=== PATIENT | female | born 2005 | race Caucasian/White ===

== ENCOUNTER 2023-08-08 13:04 | Outpatient (OUT) | payer MEDICAID, SELFPAY ==
--- NOTE | 2023-08-08 13:22 | US_ITS ---
Patient: NANCIE FUENTES Exam Date: 08/08/2023 : 2005 Gender:F Ordering : ALON Maharaj . Admission #: [id number] Family : Order #: [id number] CLICK HERE TO VIEW EXAM RADIOLOGY REPORT PROCEDURE: MAMMOGRAM DIAGNOSTIC 3D BILATERAL CAD, 08/08/2023, 14:10 US BREAST LT COMPLETE, 08/08/2023, 13:24 COMPARISON: None. INDICATIONS: Palpable lump left breast 12 o'clock Calculator Name NCI Breast Cancer Risk Assessment Tool 5 Year Breast Cancer Risk Not Applicable. Lifetime Breast Cancer Risk Not Applicable. Personal Breast Cancer No Personal Ovarian Cancer No Treatments None Family Cancers Grandmother-maternal with breast cancer at age 50. LOCATION: [facility] BREAST COMPOSITION: Extremely dense, which lowers the sensitivity of mammography. FINDINGS: DIAGNOSTIC CATEGORY 1--NEGATIVE. RIGHT BREAST: No significant suspicious finding. Skin surface marker localizing the palpable lump to the anterior 12 o'clock breast appears to overlie dense fibroglandular tissue. No mammographic abnormality. Ultrasound evaluation in area of palpable lump demonstrates normal appearing dense fibroglandular tissue. LEFT BREAST: No significant suspicious finding. RECOMMENDATIONS: CLINICAL EVALUATION. PLEASE NOTE: A NORMAL MAMMOGRAM DOES NOT EXCLUDE THE POSSIBILITY OF BREAST CANCER. A CLINICALLY SUSPICIOUS PALPABLE LUMP SHOULD BE BIOPSIED. Dictated by: Adeel Perry M.D. on 08/08/2023 at 14:52 Approved by: Adeel Perry M.D. on 08/08/2023 at 14:55
== END 2023-08-08 13:05 | disposition home or self-care (01) ==
LOC: US 13:04
PROVIDERS: PCP Obstetrics & Gynecology; Visit Provider Physician Assistant
DX: Z12.31 Encounter for screening mammogram for malignant neoplasm of breast (principal); N63.20 Unspecified lump in the left breast, unspecified quadrant; Z80.3 Family history of malignant neoplasm of breast
CPT/HCPCS: 76641; 77066; G0279

== ENCOUNTER 2025-08-23 19:50 | Outpatient (REF) | payer MEDICAID, SELFPAY ==
--- OUTSIDE RECORDS SUMMARY | 2024-06-24 04:40 | XMS_ITS ---
Author Organization [facility] [place] Address [address] [place] [address] Care Team Providers Care Garment Sewing Machine Operator Name Role Phone Yakov Craft MD Primary Care Provider Unavailab Nila Malloy Unavailable [phone] REASON FOR VISIT 2 week f/u Encounters Encounter Location Date Provider Diagnosis [facility] (POD[facility]) [address] [place] [address] [place] [address] 06/24/2024 Nila Wasserman Plan Of Treatment No Information Progress Notes * Heather JOLLEYDOB:2005 (20 yo F)Acc No.[id number]:06/24/2024 UNLOCKED PROGRESS NOTE Follow Up Patient: Heather GAMA :?QUYEN ChamorroCDOB:2005???Age:19 Y ???Sex:FemaleDate:4Phone:[phone]:[address] [id number]:Yakov Craft MD Subjective: * Chief Complaints: * 1 . 2 week f/u. * Medical History: Objective: * Vitals: Assessment: Plan: * Treatment: * * Electronic signature of Nila Wasserman PA-C on 08/23/2025 at 02:47 PM ESTSign off status: PendingVisit Status:?N/S N/C (No Show/No Charge) * Provider: Noemy Wasserman PA-C Date: 0 06/24/2024 Generated for Printing/Faxing/eTransmitting on:?08/23/2025 02:47 PM EST
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
--- OUTSIDE RECORDS SUMMARY | 2024-10-08 04:30 | XMS_ITS ---
Author Organization [facility] Address [address] [place] [address] Care Team Providers Care Geropsychologist Name Role Phone Radha Hernández Primary Care Provider Marylou Preston Unavailable NASH AL Unavailable [phone] REASON FOR VISIT FILLING Encounters Encounter Location Date Provider Diagnosis [facility] [place] [address] [facility] [place] [address] 10/08/2024 Marylou Ellis Plan Of Treatment No Information Progress Notes * NANCIE FUENTESDOB:2005 (20 yo F)Acc No.[id number]:10/08/2024 Patient:?NANCIE FUENTES :?MARYLOU CORINE ELLIS DDSDOB:2005???Age: 19 Y???Sex:FemaleDate:4Phone:[phone]:[address] [place], [place]Gqh:Radha Hernández Subjective: * Chief Complaints: * F ILLING Billing Information: * Procedure Codes: * Electronic signature of Marylou Ellis DDS on 08/23/2025 at 02:47 PM ESTSign off status: Pending * Provider: Jessica ELLIS DDS Date: 12/09/2023 Generated for Printing/Faxing/eTransmitting on:?08/23/2025 02:47 PM EST
--- OUTSIDE RECORDS SUMMARY | 2024-11-19 05:00 | XMS_ITS ---
Author Organization [facility] Address [address] [place] [address] Care Team Providers Care Emergency Medicine Nurse Practitioner Name Role Phone Radha Hernández Primary Care Provider Yolanda Preston Unavailable [phone] NASH AL Unavailable [phone] Sharon Cunningham Unavailable [phone] REASON FOR VISIT PROPHY Encounters Encounter Location Date Provider Diagnosis [facility] [place] [address] 11/19/2024 Sharon Cunningham Plan Of Treatment No Information Progress Notes * NANCIE FUENTESDOB:2005 (20 yo F)Acc No.[id number]:11/19/2024 Patient:?NANCIE FUENTES :?Sharon LopezDOB:2005???Age:19 Y???Sex: FemaleDate:11/19/2024Phone:[phone]:[address] [place]-[id number]:Radha Hernández Subjective: * Chief Complaints: * P ROPHY * Electronic signature of Sharon Cunningham on 08/23/2025 at 02:47 PM ESTSign off status: Pending * Provider: Abdullahi Lopez Date: 0 11/19/2024 Generated for Printing/Faxing/eTransmitting on:?08/23/2025 02:47 PM EST
--- OUTSIDE RECORDS SUMMARY | 2024-12-14 08:15 | XMS_ITS ---
Author Organization [facility] Address [address] [place] [address] Care Team Providers Care Dental Resident Name Role Phone Radha Hernández Primary Care Provider Yolanda Preston Unavailable NASH AL Unavailable [phone] REASON FOR VISIT 1 month f/u Encounters Encounter Location Date Provider Diagnosis [facility] [address] [facility] [address] 12/14/2024 Radha Hernández Plan Of Treatment No Information Progress Notes * GINANANCIEDOB:2005 (20 yo F)Acc No.[id number]:12/14/2024 Behavioral Health Patient: NANCIE GAMA :?Radha HernándezDOB:2005???Age:19 Y???Sex: FemaleDate:12/14/2024Phone:[phone]:[address] [place], [place]-[address] Subjective: * Chief Complaints: * 1 month f/u Billing Information: * Procedure Codes: * Electronic signature of FILEMON Caldwell on 08/23/2025 at 02:47 PM EST Sign off status: Pending * Provider: Jessica Hernández Date: 0 12/14/2024 Generated for Printing/Faxing/eTransmitting on:?08/23/2025 02:47 PM EST
--- OUTSIDE RECORDS SUMMARY | 2025-06-06 09:30 | XMS_ITS ---
Author Organization [facility] Address [address] [place] [address] Care Team Providers Care Volleyball Assistant Coach Name Role Phone Radha Hernández Primary Care Provider Yolanda Preston Unavailable NASH AL Unavailable [phone] Dr. John Arthur Unavailable [phone] REASON FOR VISIT TACKER ELASTIC BAND EXAM Encounters Encounter Location Date Provider Diagnosis [facility] [address] [place] [address] 06/06/2025 John Arthur Plan Of Treatment No Information Progress Notes * NANCIE FUENTESDOB:2005 (20 yo F)Acc No.[id number]:06/06/2025 Patient:?NANCIE FUENTES :?John Arthur DDSDOB:2005???Age:20 Y???Sex: FemaleDate:06/06/2025Phone:[phone]:[address], [place]-[id number]:Radha Hernández Subjective: * Chief Complaints: * N P EXAM Billing Information: * Procedure Codes: * Electronic signature of Dr. John Arthur , [facility], [id number] on 08/23/2025 at 02:47 PM ESTSign off status: Pending * Provider: Savi Arthur DDS Date: 0 06/06/2025 Generated for Printing/Faxing/eTransmitting on:?08/23/2025 02:47 PM EST
--- OUTSIDE RECORDS SUMMARY | 2025-08-15 09:50 | XMS_ITS | Encounter Summary ---
Author Organization [facility] Address [address] [place] [address] Care Team Providers Care Behavioral Health Care Manager Name Role Phone Yakov Craft MD Primary Care Provider Reason for Visit * ReasonCommentsDiscuss Control Encounter Details DateTypeDepartmentCare Team (Latest Contact Info)Mgliprifbvu06/03/2025 9:50 AM ESTOffice Visit [facility] [address] [place] [address] Pj Kelley DO [address] [facility] [address] Bruce Peace, [facility] Encounter for other general counseling or advice on contraception; Insertion of Nexplanon Social History Tobacco UseTypesPacks/DayYears UsedDateSmoking Tobacco: FormerCigarettesAlcohol UseStandard Drinks/WeekCommentsNever0 (1 standard drink = 0.6 oz pure alcohol) CommentsUnknownSex and Gender InformationValueDate RecordedSex Assigned at BirthNot on fileLegal KpkJqjbst80/22/2024 12:53 PM ESTGender IdentityNot on fileSexual OrientationNot on filedocumented as of this encounter Last Filed Vital Signs Vital SignReadingTime TakenCommentsBlood Clnqbsee697/8608/15/2025 9:52 AM EST Pulse--Temperature--Respiratory Rate--Oxygen Saturation--Inhaled Oxygen Concentration--Sxwbsy16.8 kg (136 lb 4 oz)08/15/2025 9:52 AM ESTHeight--Body Mass Index22.6701 12:00 PM ESTdocumented in this encounter Progress Notes * Lian Chiang LPN - 08/15/2025 9:50 AM ESTAssociated Order(s): Insertion/Removal of Contraceptive Capsule Post-Procedure Diagnose(s): Insertion of Nexplanon; Encounter for other general counseling or advice on contraception Reason for Appointment: Patient ID: Heather Jolley is a 20 y.o. female who presents for Discuss Control Patient presents today for a Nexplanon Insertion appointment. MEDICATIONS No current outpatient medications ALLERGIES Allergies Allergen Reactions Cyclobenzaprine Unknown PROBLEMS Active Ambulatory Problems Diagnosis Date Noted No Active Ambulatory Problems Resolved Ambulatory Problems Diagnosis Date Noted No Resolved Ambulatory Problems Past Medical History: Diagnosis Date BMI 29.0-29.9,adult Choroid plexus cyst Encounter for follow-up TOM (generalized anxiety disorder) Hordeolum externum of right eye, unspecified eyelid Insomnia MDD (major depressive disorder), recurrent episode, moderate (HCC) Vaginal delivery (HHS-HCC) HISTORY PAST MEDICAL HISTORY SOCIAL HISTORY Past Medical History: Diagnosis Date BMI 29.0-29.9,adult Choroid plexus cyst Encounter for follow-up TOM (generalized anxiety disorder) Hordeolum externum of right eye, unspecified eyelid Insomnia MDD (major depressive disorder), recurrent episode, moderate (HCC) Vaginal delivery (HHS-HCC) Social History Tobacco Use Smoking status: Former Types: Cigarettes Smokeless tobacco: Not on file Substance Use Topics Alcohol use: Never Drug use: Never FAMILY HISTORY No family history on file. SURGICAL HISTORY Past Surgical History: Procedure Laterality Date RI TONSILLECTOMY & ADENOIDECTOMY AGE 10/> 2018 T&A REVIEW OF SYSTEMS Review of Systems: Review of Systems Constitutional: Negative. HENT: Negative. Eyes: Negative. Respiratory: Negative. Cardiovascular: Negative. Gastrointestinal: Negative. Genitourinary: Negative. Musculoskeletal: Negative. Skin: Negative. Neurological: Negative. All other systems reviewed and are negative. Hematological: Negative. Endocrine: Negative. Allergic/Immunologic: Negative. OBJECTIVE Objective: Physical Exam Constitutional: Appearance: Normal appearance. She is well-developed. Cardiovascular: Rate and Rhythm: Normal rate and regular rhythm. Pulmonary: Effort: Pulmonary effort is normal. Breath sounds: Normal breath sounds. Abdominal: General: Bowel sounds are normal. There is no distension. Palpations: Abdomen is soft. Tenderness: There is no abdominal tenderness. There is no guarding or rebound. Musculoskeletal: General: No swelling. Normal range of motion. Right lower leg: No edema. Left lower leg: No edema. Neurological: Mental Status: She is alert and oriented to person, place, and time. Skin: General: Skin is warm and dry. Psychiatric: Mood and Affect: Mood normal. Behavior: Behavior normal. Vitals and nursing note reviewed. Exam conducted with a entry level business analyst present. Vitals: Estimated body mass index is 22.67 kg/m?? as calculated from the following: Height as of 10/30/22: 5' 5 . Weight as of this encounter: 136 lb 4 oz. BP: 122/86 No LMP recorded. ASSESSMENT & PLAN Assessment/Plan Encounter Diagnosis: ICD-10-CM 1. Encounter for other general counseling or advice on contraception Z30.09 POCT , urine manually resulted 2. Insertion of Nexplanon Z30.017 etonogestrel-eluting 68 mg contraceptive implant 1 each Insertion/Removal of Contraceptive Capsule Date/Time: 08/15/2025 10:30 AM Performed by: Pj Kelley DO Authorized by: Pj Kelley DO Consent: Consent obtained: Verbal Consent given by: Patient Patient questions answered: yes Patient agrees, verbalizes understanding, and wants to proceed: yes Educational handouts given: no Instructions and paperwork completed: yes Indication: Indication: Insertion of non-biodegradable drug delivery implant Pre-procedure: Pre-procedure timeout performed: yes Prepped with: alcohol 70% Local anesthetic: Lidocaine without epinephrine The site was cleaned and prepped in a sterile fashion: yes Procedure: Procedure: Insertion Small stab incision was made in arm: no Left/right: Left Preloaded contraceptive capsule trocar was placed subdermally: yes Visualization of implant was obtained: yes Contraceptive capsule was inserted and trocar removed: no Visualization of notch in stylet and palpation of device: yes Palpation confirms placement by provider and patient: yes Site was closed with steri-strips and pressure bandage applied: yes Nexplanon Insertion: Patient presents today for a Nexplanon Insertion. I have reviewed/educated patient on form of contraception and patient has been made aware that Nexplanon does not prevent the contraction of STD/STI's. Patient desires to move forward with Nexplanon insertion and written consent was obtained. Patient was placed in supine position with left elbow flexed by head. Skin was marked with pen indicating insertion site. Skin was then cleansed with betadine and 3cc of lidocaine without epinephrine was injected under the skin. While allowing sufficient numbing time to take effect, the Nexplanon device was removed from it's sterile packaging and found to be in good working order. Nexplanon implant was visualized in the sheath. The skin was held taut while the Nexplanon needle device was gently inserted underneath. After Nexplanon was deployed, the insertion device was discarded in the sharps container. The Nexplanon was palpated by both provider and patient. The insertion site was covered with cameron rile gauze. Good hemostasis was noted. Post-procedure instructions were given. Follow Up: Patient is to return to the office as needed for any routine appointments/concerns with Nexplanon Documented by Lian Chiang LPN on behalf of: Pj Kelley DO documented in this encounter Plan of Treatment Not on file documented as of this encounter Procedures Procedure NamePriorityDate/TimeAssociated DiagnosisCommentsPOCT , URINE Sdtqyod4808/15/2025 1:18 PM EST Encounter for other general counseling or advice on contraception RI INSERTION DRUG DELIVERY KGJXAPCTbangic15/03/2025 10:30 AM EST Encounter for other general counseling or advice on contraception Insertion of Nexplanon documented in this encounter Results * POCT , urine manually resulted (08/15/2025 1:18 PM EST)ComponentValue Ref RangeTest MethodAnalysis TimePerformed AtPathologist SignaturePreg Test, UrNegativeNegativeSpecimen (Source)Anatomical Location / LateralityCollection Method / VolumeCollection TimeReceived YuicCjdzy21/03/2025 1:18 PM EST Narrative Authorizing ProviderResult TypeResult StatusCorechris Kelley DOPOINT OF CARE TEST ENTER/EDIT ORDERABLESFinal Result * RI INSERTION DRUG DELIVERY IMPLANT (08/15/2025 10:30 AM EST) Narrative Lian Chiang, VENUE ATTENDANT - 08/15/2025 10:30 AM EST Lian JARRETT Chiang 08/15/2025 2:54 PM Insertion/Removal of Contraceptive Capsule Date/Time: 08/15/2025 10:30 AM Performed by: Pj Kelley DO Authorized by: Pj Kelley DO ?? Consent: ??Consent obtained: ??Verbal ??Consent given by: ??Patient ??Patient questions answered: yes ?Patient agrees, verbalizes understanding, and wants to proceed: yes ?Educational handouts given: no ?Instructions and paperwork completed: yes ?? Indication: ??Indication: Insertion of non-biodegradable drug delivery implant ?? Pre-procedure: ??Pre-procedure timeout performed: yes ?Prepped with: alcohol 70% ?Local anesthetic: ??Lidocaine without epinephrine ??The site was cleaned and prepped in a sterile fashion: yes ?? Procedure: ??Procedure: ??Insertion ??Small stab incision was made in arm: no ?Left/right: ??Left ??Preloaded contraceptive capsule trocar was placed subdermally: yes ?Visualization of implant was obtained: yes ?Contraceptive capsule was inserted and trocar removed: no ?Visualization of notch in stylet and palpation of device: yes ?Palpation confirms placement by provider and patient: yes ?Site was closed with steri-strips and pressure bandage applied: yes ?? Authorizing ProviderResult TypeResult StatusCorechris [facility] ORDERABLESFinal Result documented in this encounter Visit Diagnoses Diagnosis Encounter for other general counseling or advice on contraception documented in this encounter Administered Medications Medication OrderMAR ActionAction DateDoseRateSite etonogestrel-eluting 68 mg contraceptive implant 1 each 1 each, Implant, Continuous, Starting on 08/15/25 at 1030, For 1095 days Indications:Insertion of NexplanonNew Bag08/15/2025 10:16 AM EST1 eachdocumented in this encounter Care Teams Team MemberRelationshipSpecialtyStart DateEnd Date Yakov Craft MD [address] [place] [address] [facility] - [facility]28/23documented as of this encounter
--- OUTSIDE RECORDS SUMMARY | 2025-08-23 15:00 | XMS_ITS | Encounter Summary ---
Author Organization [facility] Address [address] [place] [address] Care Team Providers Care Production Utility Worker Name Role Phone Yakov Craft MD Primary Care Provider [phone] Reason for Visit * ReasonCommentsWell Women Visit Encounter Details DateTypeDepartmentCare Team (Latest Contact Info)Aguprclqfpr30/11/2025 3:00 PM ESTProcedure Visit [facility] [address] [place] [address] Krystin Maharaj PA [address] [place], [facility] Well woman exam with routine gynecological exam; Numbness Social History Tobacco UseTypesPacks/DayYears UsedDateSmoking Tobacco: FormerCigarettesAlcohol UseStandard Drinks/WeekCommentsNever0 (1 standard drink = 0.6 oz pure alcohol) CommentsNoSex and Gender InformationValueDate RecordedSex Assigned at BirthNot on fileLegal EklBogyud77/22/2024 12:53 PM ESTGender IdentityNot on file Sexual OrientationNot on filedocumented as of this encounter Last Filed Vital Signs Vital SignReadingTime TakenCommentsBlood Wiqfmnkk103/7008/23/2025 2:55 PM EST Pulse--Temperature--Respiratory Rate--Oxygen Saturation--Inhaled Oxygen Concentration--Lnipxl55.1 kg (136 lb 12.8 oz)08/23/2025 2:55 PM ESTHeight--Body Mass Index22.76010/30/2022 12:00 PM ESTdocumented in this encounter Progress Notes * ALON Gan - 08/23/2025 3:00 PM EST Reason for Appointment: Patient ID: Heather Jolley is a 20 y.o. female who presents for Well Women Visit Patient presents today for Annual Exam. MEDICATIONS No current outpatient medications ALLERGIES Allergies [...] disorder), recurrent episode, moderate (HCC) Vaginal delivery ([facility]) Social History Tobacco Use Smoking status: Former [...] Constitutional: Appearance: Normal appearance. She is well-developed. Genitourinary: Vulva normal. Right Adnexa: not tender and no mass present. Left Adnexa: not tender and no mass present. No cervical discharge. Breasts: Breasts are soft. Right: Normal. Left: Normal. HENT: Head: Normocephalic. Nose: Nose normal. Mouth/Throat: Mouth: Mucous membranes are moist. Cardiovascular: Rate and Rhythm: Normal rate and regular rhythm. Pulmonary: Effort: Pulmonary effort is normal. Breath sounds: Normal breath sounds. Abdominal: General: Bowel sounds are normal. There is no distension. Palpations: Abdomen is soft. Tenderness: There is no abdominal tenderness. There is no guarding or rebound. Musculoskeletal: General: No swelling. Normal range of motion. Cervical back: Normal range of motion. Right lower leg: No edema. Left lower leg: No edema. Neurological: General: No focal deficit present. Mental Status: She is alert and oriented to person, place, and time. Skin: General: Skin is warm and dry. Psychiatric: Mood and Affect: Mood normal. Behavior: Behavior normal. Vitals and nursing note reviewed. Exam conducted with a dwarf tree grower present. Vitals: Estimated body mass index is 22.76 kg/m?? as calculated from the following: Height as of 10/30/22: 5' 5 . Weight as of this encounter: 136 lb 12.8 oz. BP: 110/70 No LMP recorded. Patient has had an implant. Assessment/Plan ICD-10-CM 1. Well woman exam with routine gynecological exam Z01.419 Pap Smear 2. Numbness R20.0 Annual Exam: Patient presents today for an annual exam. Patient states she is doing well but states some vaginalnumbness since delivery over 4 years ago. Pap was obtained without difficulty. Patient does have some numbness we will start cream at this time and she is to call and let office know how this helped or not and will do treatment of estradiol. No orders of the defined types were placed in this encounter. Follow Up: Patient is to return in one year for annual unless needed otherwise. Documented by Ana Crocker LPN on behalf of: ALON Gan documented in this encounter Plan of Treatment NameTypePriorityAssociated DiagnosesOrder SchedulePap SmearPathology and CytologyRoutine Well woman exam with routine gynecological exam Ordered: 08/23/2025documented as of this encounter Visit Diagnoses Diagnosis Well woman exam with routine gynecological exam Routine gynecological examination Numbness Disturbance of skin sensation documented in this encounter Care Teams Team MemberRelationshipSpecialtyStart DateEnd Date Yakov Craft MD [address] [place] [address] PCP - GeneralFamily Medicine04/28/23documented as of this encounter
--- OUTSIDE RECORDS SUMMARY | 2025-08-23 19:55 | XMS_ITS | CCD ---
Author Organization [facility] Care Team Providers Care Traffic Police Officer Name Role Phone Eula Londono Unavailable Bridgette Reyes Unavailable ZAHIRA, DR YAKOV Cruz Primary Care Unavailable ZURI, DR VERNON Ch Admitting Unavailable ZURI, DR VERNON Ch Attending Unavailable ZURI, DR VERNON Ch Consulting Unavailable ANUJ BAY Consulting Unavailable SARATOGA, DR KENJI Curiel Consulting Unavailable ZAHIRA, DR YAKOV Cruz Primary Care Unavailable WARREN ., DR VILLANUEVA Admitting Unavailable WARREN ., DR VILLANUEVA Attending Unavailable WARREN ., DR VILLANUEVA Consulting Unavailable WARREN ., DR VILLANUEVA Consulting Unavailable NADBRENDONR, DR YAKOV Cruz Primary Care Unavailable WARREN ., DR VILLANUEVA Admitting Unavailable WARREN ., DR VILLANUEVA Attending Unavailable RANDY Adams Attending Provider Aletha Adams Unavailable Aletha Adams Attending Unavailable Aletha Adams Admitting Unavailable NON STAFF Primary Care Unavailable YAKOV RODRIGES Primary Care Physician [phone] Mildred Salinas Primary Care Physician Yakov Rodriges MD Primary Care Provider Mildred Salinas Primary Care Physician Mildred Salinas Attending Unavailable Lucero Zamora Attending Unavailable Mildred Salinas Attending Unavailable Mildred Salinas Attending Unavailable Mildred Salinas Attending Unavailable Mildred Salinas Attending Unavailable Mildred Salinas Referring Unavailable Mildred Salinas Attending Unavailable Mildred Salinas Admitting Unavailable Mildred Salinas Admitting Unavailable Mildred Salinas Attending Unavailable Vasquez Rojo Attending Unavailable Mildred Salinas Attending Unavailable Mildred Salinas Attending Unavailable Mildred Salinas Attending Unavailable Mildred Salinas Admitting Unavailable Yakov Rodriges MD Primary Care Provider PJ KELLEY Attending Unavailable PJ KELLEY Attending Unavailable Allergies Allergy ClassificationReported Allergen(s)Allergy TypeDate of OnsetReaction(s) Facility (8 sources)PARoxetineDrug AllergydisorientationNort [facility] Other (6 sources)cyclobenzaprineDrug Ukjvuhr51-09-9791AncwdacKQDJ [facility] (1 source)No Known Medication Allergies; Translations: [No Known Medication Allergies]Propensity to adverse reactions (disorder)[facility] Repository Medications Current Medications MedicationDrug Class(es)DatesSig (Normalized)Sig (Original)etonogestrel 68 mg drug implant (7 sources)ProgestinStart: 08-15-2025 End: 38-56-5396pqqogyxdfeyd-eluting 68 mg contraceptive implant 1 eachStart: 14-04-7192Mfepenpib 68 mg subcutaneous implant Refills(s) 0 Start Date: 08/26/24 Status: Ordered Repeat number: 1lidocaine hydrochloride 20 mg/ml mucous membrane topical solution (1 source)Antiarrhythmic, Amide Local AnestheticStart: 59-52-1964ujgz 15 mL by mouth every three hours as neededLidocaine Viscous HCl 2 % 15 mL as needed Mouth/Throat every 3 hrs for 7 days Mix with equal parts lidocaine, diphenhydramine and maalox Jul, Activesertraline 50 mg oral tablet (1 source)Serotonin Reuptake InhibitorStart: 34-08-6220encp 1 tablet by mouth once dailyZoloft 50 mg Tab 50 mg = 1 tab(s), Oral, Daily, # 30 tab(s), Refills(s) 1, Pharmacy: [facility], 165, cm, 03/14/25 11:11:00 EDT, Height/Length Dosing, 68.8, kg, 03/14/25 11:11:00 EDT,Weight Dosing Start Date: 03/14/25 Status: Ordered Quantity: 30.0 Unit: tab(s) Repeat number: 2Zofran ODT 4 mg Tab-Dis (4 sources)Start: 32-24-2734xgfh 1 tablet by mouth every six hours as needed for nauseaZofran ODT 4 mg Tab-Dis 4 mg = 1 tab(s), Oral, q6hr, PRN Nausea/Vomiting, # 12 tab(s), Refills(s) 0, Pharmacy: [facility], 165, cm, 01/19/24 13:19:00 EDT, Height/Length Dosing, 71.1, kg, 01/19/24 13:19:00 EDT, Weight Dosing Start Date: 01/19/24 Status: Ordered Completed/Discontinued Medications MedicationDrug Class(es)DatesSig (Normalized)Sig (Original)escitalopram 5 mg oral tablet (8 sources)Serotonin Reuptake InhibitorStart: 34-82-7060rifw 1 tablet by mouth every twenty-four hoursEscitalopram Oxalate 5 MG 1 tablet Orally Once a day for 30 day(s) Oct, Not-Taking Problems Active Problems Problem ClassificationProblemDateDocumented DateEpisodic/ChronicAbdominal pain (13 sources)Pain in pelvis; Translations: [Pelvic and perineal pain]Onset: 24-04-0137UwhgjyuuEeqdzrtwvymbhq/social admission (3 sources)Patient encounter status; Translations: [Persons encountering health services in other specified circumstances]Onset: 87-38-9447IdzgmmrrTgcaggd disorders (14 sources)Anxiety; Translations: [Anxiety disorder, unspecified]Onset: 07-40-4046KojwpxyZehpsng dysrhythmias (1 source)Palpitations; Translations: [Palpitations]Onset: 42-46-5537Mxodbgzo Contraceptive and procreative management (1 source)Subcutaneous contraceptive implant present; Translations: [Encounter for surveillance of implantable subdermal contraceptive]45-00-0807Rbhjrnst Immunizations and screening for infectious disease (1 source)Contact with and (suspected) exposure to infections with a predominantly sexual mode of transmission; Translations: [CONTCT W EXPOS INFECT SEXUAL TRNSMS]Onset: 62-36-9713QxztfrubMkurfyxaqllnc mental health disorders (9 sources) depression; Translations: [ depression]Episodic Mood disorders (4 sources)Depressive disorder; Translations: [Depression, unspecified]Onset: 97-85-1704GelcednEvbfqk and vomiting (1 source)Vomiting; Translations: [Vomiting, unspecified]Onset: 01-19-2024 EpisodicOther connective tissue disease (8 sources)Pain in left lower limb; Translations: [Pain in left leg]Episodic Other connective tissue disease (1 source)Pain in left legEpisodicOther female genital disorders (8 sources)Pain in female genitalia on intercourse; Translations: [Unspecified dyspareunia]ChronicOther female genital disorders (8 sources)Abnormal uterine bleeding; Translations: [Other specified abnormal uterine and vaginal bleeding]ChronicOther female genital disorders (1 source)Other specified abnormal uterine and vaginal bleedingChronicOther female genital disorders (1 source)Unspecified dyspareuniaChronicOther female genital disorders (4 sources)Other specified noninflammatory disorders of vagina; Translations: [OTH SPEC NONINFLAMMATORY D/O VAGINA]Onset: 90-15-2376GnklsnyqClgye gastrointestinal disorders (1 source)Diarrhea; Translations: [Diarrhea, unspecified]Onset: 01-19-2024 EpisodicOther nervous system disorders (1 source)Impaired cognition; Translations: [Attention and concentration deficit]Onset: 31-13-6985JxrddgjSejkr non-traumatic joint disorders (8 sources)Hip pain; Translations: [Pain in left hip]EpisodicOther non-traumatic joint disorders (1 source)Pain in left hipEpisodicOther nutritional; endocrine; and metabolic disorders (6 sources)Overweight in adulthood with body mass index of 25 or more but less than 30; Translations: [Body mass index (BMI) 26.0-26.9, adult]Onset: 08-26-2024 EpisodicOther nutritional; endocrine; and metabolic disorders (6 sources)Overweight; Translations: [Overweight]Onset: 23-42-2586BfhbzplhQvpni screening for suspected conditions (not mental disorders or infectious disease) (1 source)Cardiac disease monitoring status; Translations: [Encounter for screening for cardiovascular disorders]Onset: 90-42-7187DmgucvwvHdiqe skin disorders (1 source)Disorder of skin; Translations: [Disorder of the skin and subcutaneous tissue, unspecified]Onset: 00-36-0568MbbrehcbWyngk upper respiratory infections (3 sources)Acute pharyngitis, unspecified; Translations: [Acute pharyngitis, unspecified]Onset: 75-30-9271HzksnpzjQhmjfnhuglpi (2 sources)COUGH, UNSPECIFIED; Translations: [COUGH, UNSPECIFIED]Onset: 08-70-3169Cvxrb infection (1 source)COVID-19; Translations: [COVID-19]Onset: 09-10-2022 Past or Other Problems Problem ClassificationProblemDateDocumented DateEpisodic/ChronicUnclassified (1 source)COUGH, UNSPECIFIED; Translations: [COUGH, UNSPECIFIED]Onset: 09-04-2022 Results Test NameValueInterpretationReference RangeFacilityHCG ( test) Ql (U) Ordered By: Little Alonzo on 52-57-6990Tijaswwgowvjxf and review of laboratory resultsNormalSt. Louis VA Medical CenterPreg Test, UrNegativeNegativeWakeMed Cary HospitalNo Panel Informationon [id number] Chiang LPN 08/15/2025 2:54 PM Insertion/Removal of Contraceptive Capsule [...] closed with steri-strips and pressure bandage applied: [facility] HealthcareCMPon 37-22-7188Eortwng [Mass/Vol]4.6 g/dLNormal3.3-5.0 [facility] HospitalComment on above:Performed By: #### [id number] #### [facility] [address], [place] [address]Yaeqnqr/Globulin [Mass ratio]1.8 {ratio}Normal1.1-2.2FSt. Mary's Medical CenterComment on above:Performed By: #### [id number] #### [facility] [address], [place] [address]Wpn Phos43 Int._Unit/GTgjgoo96-91NxxsruParkview Health Bryan Hospital Comment on above:Performed By: #### [id number] #### [facility] [address], [place] [address]RYJ6 Int._Unit/LNormal6-46[facility] HospitalComment on above:Performed By: #### [id number] #### [facility] [address] [place] [address]Rgmbu gap [Moles/Vol]10 mmol/LNormal6-16[facility] HospitalComment on above:Performed By: #### [id number] #### [facility] [address] [place] [address]SGB84 Int._Unit/LNormal5-43[facility] HospitalComment on above:Performed By: #### [id number] #### [facility] [address] [place] [address]Tlhc Total0.5 mg/dLNormal0.0-1.1FSt. Mary's Medical Center Comment on above:Performed By: #### [id number] #### [facility] [address], [place] [address]OPK/Creat Ratio9 No WvaebKqs35-90YsjaadParkview Health Bryan Hospital Comment on above:Performed By: #### [id number] #### [facility] [address] [place] [address]Nejzyom [Mass/Vol]9.2 mg/dLNormal8.9-11.1FSt. Mary's Medical CenterComment on above:Performed By: #### [id number] #### [facility] [address] [place], [place] [address]Qkjzlsyp [Moles/Vol]107 mmol/YWnhcyh153-873TqljsnParkview Health Bryan HospitalComment on above:Performed By: #### [id number] #### [facility] [address], [place] [address]AR0 [Moles/Vol]25 mmol/XGjbcfj97-06PucmplParkview Health [facility] Hospital Comment on above:Performed By: #### [id number] #### [facility] [address] [place], [place] [address]Itifgpzczq [Mass/Vol]0.7 mg/dLNormal0.5-1.3FSt. Mary's Medical CenterComment on above:Performed By: #### [id number] #### [facility] [address], [place] [address]Wbskvzjk (S) [Mass/Vol]2.6 g/dLNormal1.4-4.0[facility] HospitalComment on above:Performed By: #### [id number] #### [facility] [address], [place] [address]Fkzaloq [Mass/Vol]84 mg/zVAnugcd34-685SchxoqParkview Health Bryan HospitalComment on above:Performed By: #### [id number] #### [facility] [address], [place] [address]Mcoyegijo [Moles/Vol]4.0 mmol/LNormal3.5-5.3FSt. Mary's Medical CenterComment on above:Performed By: #### [id number] #### [facility] [address], [place] [address]Uohusof [Mass/Vol]7.2 g/dLNormal6.0-7.8[facility] HospitalComment on above:Performed By: #### [id number] #### [facility] [address] [place], [place] [address]Ufkaak [Moles/Vol]138 mmol/CHgjhww419-022GuvzenParkview Health Bryan HospitalComment on above:Performed By: #### [id number] #### [facility] [address], [place] [address]Rqze nitrogen [Mass/Vol]6 mg/dLNormal5-21[facility] HospitalComment on above:Performed By: #### [id number] #### [facility] [address] [place], [place] [address]Bzzao Panelon 96-65-8112Xtedfnwjygl [Mass/Vol]129 mg/dLNormal 120-200[facility] HospitalComment on above:Performed By: #### [id number] #### [facility] [address] [place], [place] [address]Ictrqabuhdf in HDL [Mass/Vol]63 mg/dLInvalid Interpretation CodeParkview Health Bryan HospitalComment on above:Result Comment: '>= 60 LOW RISK' '<= 40 HIGH RISK'Performed By: #### [id number] #### [facility] [address], [place] [address]Biynmpnvers in LDL [Mass/Vol]52 mg/dLNormal<=129[facility] HospitalComment on above:Performed By: #### [id number] #### [facility] [address], [place] [address]Dubslpjpktj in VLDL [Mass/Vol]12 mg/dLNormal7-40[facility] HospitalComment on above:Performed By: #### [id number] #### [facility] [address], [place] [address]Rjpxwyprlllp [Mass/Vol]58 mg/dLNormal<=149[facility] HospitalComment on above:Performed By: #### [id number] #### [facility] [address], [place] [address]UTEsv 75-90-7552VVA Qn1.43 m[IU]/LNormal0.34-5.60[facility] HospitalComment on above:Performed By: #### [id number] #### [facility] [address] [place], [place] [address]dFHEpe 09-39-7267jVJU049 mL/min/1.73 z0Yqafaf>=59[facility] HospitalComment on above:Performed By: #### [id number] #### [facility] [address] [place], [place] [address]Wulpnksvsd Visit Summaryon 51-00-4931Dreulmqctp Visit Summary Ambulatory Visit Summary NANCIE FUENTES :2005 Visit Date:03/14/2025 Ambulatory Visit Instructions Your Diagnosis Anxiety Depression Over weight BMI 25.0-25.9,adult Your Care Team Attending Physician - Mildred Wright Primary Care Physician - Mildred Wright This Is Your Medications List sertraline (Zoloft 50 mg Tab) Contact prescribing physician if questions or concerns etonogestrel (Nexplanon 68 mg subcutaneous implant) Procedures Performed Epidural anesthesia (09/08/2021), Tonsillectomy. Discharge Vitals Heart Rate (Peripheral) 95 Respiratory Rate 16 Blood Pressure 98/74 Height 165.0 cm Height 65 in Weight 68.8 kg Weight 151.678 lb BMI 25.27 Medications What How Much When Why Instructions Changed sertraline (Zoloft 50 mg Tab) 1 Tablets By Mouth Every day Pickup at [facility] Unchanged etonogestrel (Nexplanon 68 mg subcutaneous implant) Contact prescribing physician if questions or concerns Pharmacy Information [facility]: [address] [place] [id number] [phone] Allergies No Known Medication Allergies Problems Ongoing - Any problem that you are currently receiving treatment for. Anxiety BMI 25.0-25.9,adult Depression Over weight Patient Survey You may receive a survey via text or e-mail asking about your office visit. Please share your experience with us by completing your survey. We appreciate your feedback and thank you for choosing us for your care. [facility] Medicine Office/Clinic Noteon 80-77-3724Grcvaf Medicine Office/Clinic NoteFagood [facility] Medicine Office/Clinic Note Chief Complaint Medication follow up HPI Staff Patient here for medication follow up. Zoloft 25mg started at [facility]. - States that she is starting to notice a little bit of a change. PHQ9 Score: 12 (prior score 21) TOM Score: 11 (prior score 10) Concerns: Spot on back of her arm/shoulder on right side. It is raised and hard to the touch. History of Present Illness I have reviewed and discussed the HPI (staff) with the patient today. Information was verified and is correct. Additional information provided if needed. Pt reports to office today for mental health follow up. She also does report concern for a skin lesison on her back that she feels has changed over the last year and wonders if she should see dermatology. This spot does not drain or bleed, has not changed color, or size but has become slightly moreraised/hard than it was before. Patient is here for follow-up on major depressive disorder and/or generalized anxiety disorder Current medication regimen: sertraline 25mg/day started at our last visit Currently enrolled in therapy? no but she has contact information for [facility] and will call to schedule. Pt reports being better controlled and tolerating medication well at this time, but feels that she would like to increase the dose to see if she sees further improvement. Pt denies medication side effects (CAMARGO, sexual dysfunction, increased weight, nausea, drowsiness). Pt denies increased fatigue/sleepiness, SI/HI, feelings of worthlessness, appetite changes, anhedonia, depressed mood, racing thoughts, insomnia, agitation, increased worrying, rapid heart rate, SOB at this time. Review of Systems PHQ Score Initial Depression Screen Score: 1 SCORE ROS negative unless otherwise stated in HPI. Physical Exam Vitals & Measurements HR: 95(Peripheral) RR: 16 BP: 98/74 SpO2: 98% HT: 165.0 cm HT: 65 in WT: 68.8 kg WT: 151.678 lb BMI: 25.27 PHYSICAL EXAM General: Well developed, well nourished, no apparent distress Head: Normocephalic, atraumatic Neck: No bruit, symmetric Lungs: Lungs clear to auscultation Cardio: Regular rate and rhythm with no murmur Pulses: Pulses present in all four extremities Extremities: No edema Skin: 5mm raised red lesion noted to posterior aspect of R shoulder Mental Status: Alert and cooperative with appropriate mood and affect Assessment/Plan 1. Anxiety (F41.9: Anxiety disorder, unspecified) TOM score: 11 Increase sertraline to 50mg/day Discussed red flags/when to seek emergency care and mental health support hotlines. Pt verbalized understanding of resources and when to seek emergency care and denies SI/HI at this time. Pt to call [facility] to schedule. F/U 1 months and PRN. Ordered: Thyroid Stimulating Hormone 2. Depression (F32.A: Depression, unspecified) PHQ-9 score: 12 Increase sertraline to 50mg/day Discussed red flags/when to seek emergency care and suicide support hotlines. Pt verbalized understanding of resources and when to seek emergency care and denies SI/HI at this time. Pt to call [facility] to schedule. Follow up 1 month or sooner if needed. 3. Skin lesion of back (L98.9: Disorder of the skin and subcutaneous tissue, unspecified) Chronic, changing per pt. Refer to dermatology for further evaluation. 4. Screening for cardiovascular condition (Z13.6: Encounter for screening for cardiovascular disorders) Screening labs ordered, we will call with results. Ordered: Comprehensive Metabolic Panel Lipid Panel 5. Over weight (E66.3: Overweight) The standard range for ages 18 and older is >=18.5 and < 25 kg/m2. Your BMI today was above this range, this falls in the overweight to obese category and there are medical benefits to weight loss. We can offer counselling, referral, and/or medical support in addressing this problem. Your BMIand weight management will be followed at subsequent visits. 6. BMI 25.0-25.9,adult (Z68.25: Body mass index [BMI] 25.0-25.9, adult) Encourage healthy diet and lifestyle choices. Ordered: Current tobacco non-user 1036F Orders: sertraline, 50 mg = 1 tab(s), Oral, Daily, # 30 tab(s), Refills(s) 1, Pharmacy: [facility], 165, cm, 03/14/25 11:11:00 EDT, Height/Length Dosing, 68.8, kg, 03/14/25 11:11:00 EDT, Weight Dosing Follow-up With When Contact Information Mildred Wright In 1 month Additional Instructions: Patient Education Budget-Friendly Healthy Eating Managing Depression, Adult Mindfulness-Based Stress Reduction Problem List/Past Medical History Ongoing Anxiety BMI 25.0-25.9,adult Depression Over weight Historical No qualifying data Procedure/Surgical History Epidural anesthesia (09/08/2021), Tonsillectomy. Medications Nexplanon 68 mg subcutaneous implant, Not taking Zoloft 50 mg Tab, 50 mg= 1 tab(s), Oral, Daily, 1 refills Allergies No Known Medication Allergies Social History Alcohol - De (more content not included)...[facility] Comment on above:Result Comment: Electronically Signed By: Mildred Wright.br\Date and Time Signed: 03/14/25 12:18 EDTFamily Medicine Office/Clinic Noteon [phone] Medicine Office/Clinic NoteFagood sam[facility]itan [facility] center Medicine Office/Clinic Note HPI Staff Patient here today for follow up. TOM Score: 21 PHQ9 Score: 10 Current concerns: Would like to discuss weight mgnt. Also wants to discuss depression. She states that her Psych doctor wasn't a good fit for her - she would like to have mange it. History of Present Illness I have reviewed and discussed the HPI (staff) with the patient today. Information was verified and is correct. Additional information provided if needed. Pt here for follow up regarding mental health and weight management. Patient is here for follow-up on major depressive disorder and/or generalized anxiety disorder Current medication regimen: none Currently enrolled in therapy? She was seeing Radha Valente at [facility], did not feel comfortable with her and stopped seeing her. Was diagnosed with bipolar- started on latuda and buspar, did not tolerate, felt blurry, hopeless, worsened depression so she stopped taking it. Does feel better since stopping the medication however she is still having trouble with lack of motivation. She does feel thatshe is struggling more with depression than anxiety lately. Struggles with motivation to do everyday tasks and interacting with her child and friends. Does not feel she sleeps well at night. Pt denies increased fatigue/sleepiness, SI/HI, feelings of worthlessness, appetite changes, anhedonia, racing thoughts, insomnia, agitation, increased worrying, rapid heart rate, SOB at this time. TOM score: 21 PHQ9 score: 10 Weight management concerns: Working out at home routinely, gym equipment at home, youtube workouts, 10,000 steps/day, has been monitoring calorie intake, is working on her diet and portion control and is still struggling to lose weight. Review of Systems PHQ Score Initial Depression Screen Score: 1 SCORE ROS negative unless otherwise stated in HPI. Physical Exam Vitals & Measurements HR: 90(Peripheral) RR: 16 BP: 112/76 SpO2: 99% HT: 165 cm HT: 65 in WT: 72.4 kg WT: 159.614 lb BMI: 26.59 PHYSICAL EXAM General: Well developed, well nourished, no apparent distress Head: Normocephalic, atraumatic Neck: No bruit, symmetric Lungs: Lungs clear to auscultation Cardio: Regular rate and rhythm with no murmur Pulses: Pulses present in all four extremities Extremities: No edema Mental Status: Alert and cooperative with appropriate mood and affect Assessment/Plan 1. Anxiety (F41.9: Anxiety disorder, unspecified) TOM score: 21 Start zoloft 25mg daily, medication education provided. Discussed red flags/when to seek emergency care and mental health support hotlines. Pt verbalized understanding of resources and when to seek emergency care and denies SI/HI at this time. Referral placed for psychiatry. F/U 1 months and PRN. Ordered: sertraline, 25 mg = 1 tab(s), Oral, Daily, # 30 tab(s), Refills(s) 1, Pharmacy: [facility], 165, cm, 01/17/25 16:11:00 EDT, Height/Length Dosing, 72.4, kg, 01/17/25 16:11:00 EDT, Weight Dosing [facility] [place] Ambulatory Referral 2. Depression (F32.A: Depression, unspecified) PHQ 9: - 10 Start zoloft 25mg today. Discussed expectation for gradual improvement (full therapeutic effect can take 3-8 weeks to reach)and the development of potential side effects including drowsiness, sexual dysfunction/ED, frontal CAMARGO, low sodium, nausea and increased suicidality (especially in teens). Counseled pt to call office if new or worsening symptoms develop or concerns arise. Reviewed when to seek emergency department evaluation, in the event suicidal ideations were to develop. CBT therapy/counseling recommended, referral placed for psychiatry. Crisis hotline number provided. Patient verbalizes understanding and agrees with the plan. Patient is to make follow up appointment in 1 month to assess medication tolerance and determine ifadjustments are warranted. Will complete labs before that time. Follow up in 1 month or sooner if needed. Ordered: sertraline, 25 mg = 1 tab(s), Oral, Daily, # 30 tab(s), Refills(s) 1, Pharmacy: [facility], 165, cm, 01/17/25 16:11:00 EDT, Height/Length Dosing, 72.4, kg, 01/17/25 16:11:00 EDT, Weight Dosing [facility] [place] Ambulatory Referral 3. BMI 26.0-26.9,adult (Z68.26: Body mass index [BMI] 26.0-26.9, adult) The standard range for ages 18 and older is >=18.5 and < 25 kg/m2. Your BMI today was above this range, this falls in the overweight to obese category and there are medical benefits to weight loss. We can offer counselling, referral, and/or medical support in addressing this problem. Your BMIand weight management will be followed at subsequent visits. Ordered: [facility] Internal Ambulatory Referral 4. Over weight (E66.3: Overweight) Encourage healthy diet and lifestyle choices. Referral placed for sourcing engineer today. Pt to follow up in 1 month for reevaluation. Ordered: [facility] Internal Ambulatory Referral Follow-up With When Contact Information Harjinder Wright (more content not included)...[facility] Comment on above:Result Comment: Electronically Signed By: Mildred Wright.br\Date and Time Signed: 01/17/25 17:04 EDTInsertion/Removal of Contraceptive Capsuleon 96-06-1578LvouqLian Chiang LPN 10/18/2024 3:49 PM Insertion/Removal of Contraceptive Capsule Date/Time: 10/18/2024 3:24 PM Performed by: Pj Kelley DO Authorized by: Pj Kelley DO Consent: Consent obtained: Written Consent given by: Patient Patient questions answered: yes Patient agrees, verbalizes understanding, and wants to proceed: yes Educational handouts given: no Instructions and paperwork completed: no Indication: Indication: Presence of non-biodegradable drug delivery implant Pre-procedure: Pre-procedure timeout performed: yes Prepped with: povidone-iodine Local anesthetic: Lidocaine without epinephrine Procedure: Procedure: Removal Small stab incision was made in arm: yes Left/right: Left Preloaded contraceptive capsule trocar was placed subdermally: no Visualization of implant was obtained: no Contraceptive capsule was inserted and trocar removed: no Visualization of notch in stylet and palpation of device: no Palpation confirms placement by provider and patient: no Site was closed with steri-strips and pressure bandage applied: no Comments: Removal of Nexplanon insertionWakeMed Cary HospitalHolter Monitoron 22-51-4231Cgpqxe MonitorHolter Monitor HOLTER MONITOR ENROLLMENT PERIOD: 09/29/2024 through 10/01/2024 INDICATION: Palpitations. FINDINGS: Over the monitoring time, predominant underlying rhythm was sinus with minimum heart rateof 44, average heart rate 88, maximum heart rate 167 beats per minute. There were 7 patient events with symptoms of palpitations, shortness of breath, dizziness, chest pain or pressure, not specified. There were no secondary arrhythmias. Total burden of premature supraventricular contractions was less than 0.01%. There was no ventricular ectopy. The patient's symptoms corresponded to sinus rhythm and sinus tachycardia. CONCLUSIONS: Underlying sinus rhythm, unremarkable Holter monitor. READ BY: Xavi Capone MD ca Dictated: 10/04/2024 [id number] Transcribed: 10/04/2024 cc:Adri AlexandreAdena Regional Medical CenterComment on above: Result Comment: Electronically Signed By: Estelita PADILLA, Xavi Orona\.br\Date and Time Signed: 10/05/24 08:06 ESTAmbulatory Visit Summaryon 30-64-9725Vstecueojh Visit SummaryAmbulatory Visit Summary NANCIE FUENTES :2005 Visit Date:08/26/2024 Ambulatory Visit Instructions Your Diagnosis Concentration deficit BMI 26.0-26.9,adult Over weight Anxiety Heart palpitations Your Care Team Attending Physician - Brad ROBLES, Mildred Marino Primary Care Physician - YAKOV RODRIGES MD This Is Your Medications List Contact prescribing physician if questions or concerns etonogestrel (Nexplanon 68 mg subcutaneous implant) Procedures Performed Epidural anesthesia (09/08/2021), Tonsillectomy. Discharge Vitals Heart Rate (Peripheral) 92 Blood Pressure 110/78 Height 165 cm Height 65 in Weight 72.6 kg Weight 160.055 lb BMI 26.67 Medications What When Instructions Unchanged etonogestrel (Nexplanon 68 mg subcutaneous implant) Contact prescribing physician if questions or concerns Allergies No Known Medication Allergies Patient Survey You may receive a survey via text or e-mail asking about your office visit. Please share your experience with us by completing your survey. We appreciate your feedback and thank you for choosing us for your care. [facility] Medicine Office/Clinic Noteon [id number] [facility] Note[facility] Chief Complaint Est. care HPI Staff New pt. Est. care TOM: 6 Establish Care: History: Last provider: Alyssia Reynaga recent labs: 01/2024 Acute: Current issues/complaints: concentration problems, forgetting what the conversation was, forgettingstuff frequently, lack of motivation. Chest pains, heart feels like it is racing, SOB, breathing heavy. History of Present Illness I have reviewed and discussed the HPI (staff) with the patient today. Information was verified and is correct. Additional information provided if needed. Patient is here to establish care. Previous pcp Dr Rodriges. Patient is here today for evaluation and overall feeling okay. Concerns: concentration difficulty/anxiety: noticed this since she had her daughter about 3 years ago and hasbeen worsening ever since. She struggles with keeping on task and feels a lack of motivation. She feels that she is having trouble getting tasks done at home due to concentration. She states it is now impacting her daily life and would like to get further evaluation with psychiatry. She reports being treated for anxiety briefly as a teenager but she was not on medication assisted. She denies SI/HI or symptoms of depression. TOM 6 Heart palpitations: pretty frequent, have been ongoing for years. She denies shortness of breath, chest pain, headaches, or syncope. Would like further work up for this as she feels it is becoming more frequent. Wonders if it could be related to mental health/anxiety. Medical History: none Past Surgical History: tonsillectomy about 7 years ago Past family History: Mother: alive Father: alive Social History: Occupation: stay at home mom Family life: home with boyfriend and daughter Diet: no restrictions Caffeine: 1 cup coffee or energy drink a few times a week Exercise: at home workouts Alcohol use: wine, couple times a month Drug use: denies Smoking status: vape occasionally Health Maintenance: Routine labs: 01/2024 Pap (21-64yo): about 2 years ago Specialists: Cottage Supervisor: dede Dentist: rihubert OBGYN: Dr Kelley Review of Systems PHQ Score Initial Depression Screen Score: 1 SCORE ROS: Constitutional: no fever, no chills, no sweats, no weakness, no body aches, no changes in weight without trying. Skin: no rash, no skin lesions, no petechiae. Eyes: no eye irritation/pain, no eye drainage, no vision changes. Ears: no ear pain, no ear drainage, no itching, no tinnitus. Nose: no rhinorrhea, no nasal congestion. Throat: no pain, no hoarseness. Respiratory: no shortness of breath, no cough, no orthopnea, no wheezing. Cardiovascular: no chest pain, no edema. Gastrointestinal: no nausea, no vomiting, no diarrhea, no bleeding, no abdominal pain. Genitourinary: no dysuria, no hematuria, no frequency, no urgency, no hesitancy, no small amount void, no suprapubic pain, no flank pain. Musculoskeletal: no back pain, no joint pain, no trauma. Neurological: no headache, no dizziness, no numbness/tingling, no weakness. Psychiatric: no sleeping problems, irritability, mood swings/depression Heme/Lymph: no bleeding tendency, bruising tendency, petechia, swollen/tender nodes Allergy/immunologic: no seasonal allergies, food allergies, recurrent infection, impaired immunity Physical Exam Vitals & Measurements HR: 92(Peripheral) BP: 110/78 SpO2: 98% HT: 65 in HT: 165 cm WT: 72.6 kg WT: 160.055 lb BMI: 26.67 PHYSICAL EXAM General: Well developed, well nourished, no apparent distress Head:Normocephalic, atraumatic Eyes:EOMI, sclera clear Nose:No deformity, discharge, inflammation or lesions Mouth:Mucosa moist. Neck:No bruit, symmetric Lungs:Lungs clear to auscultation Cardio:Regular rate and rhythm with no murmur Pulses:Pulses present in all four extremities Abdomen:Normal bowel sounds, non tender, no masses Musculoskeletal:Normal ROM of extremities, self ambulating Neuro:grossly normal Skin:No abnormal skin lesions Lymph Nodes: No cervical lymphadenopathy Mental Status: Alert and cooperative with appropriate mood and affect Assessment/Plan 1. Establishing care with new doctor, encounter for (Z76.89: Persons encountering health services in other specified circumstances) Discussed recommended screenings and testing for age and lifestyle risks: - Screening for hypertension with blood pressure checks - Screening for depression with PHQ tools - Vaccination recommendations reviewed - Screening for diabetes, vitamin deficiencies, thyroid disorders -Ordered labs today (CMP, CBC, TSH, lipids, PSA for males and other as needed testing) - Discuss Resources and Guidelines including proper diet and exercise. - Those with HTN, CAD, or PAD for example. recommendations regarding BP parameters and lipid control provided - Those with DM and obesity recommendations regarding labs including hgA1c, microalbumin, foot exams, eye exams, nutrition, weight, reviewed - (more content not included)...[facility]:Result Comment: Electronically Signed By: Brad ROBLES, Mildred Marino\.br\Date and Time Signed: 08/26/24 11:05 ESTCHEMISTRYOrdered By: SYSTEM SYSTEM on 20-00-8621Zbdnmge [Mass/Vol]5.0 g/dLNormal3.3 - 5.0 gm/dLRemisol Chem Albumin/Globulin [Mass ratio]1.4 {ratio}Normal1.1 - 2.2Remisol ChemALP [Catalytic activity/Vol]55 [iU]/lYvjfup76 - 98 Int._Unit/LRemisol ChemALT No additional P-5'-P [Catalytic activity/Vol]7 [iU]/dNormal6 - 46 Int._Unit/L Remisol ChemAnion gap [Moles/Vol]12 mmol/LNormal6 - 16 mEq/LRemisol ChemAST [Catalytic activity/Vol]11 [iU]/dNormal5 - 43 Int._Unit/LRemisol ChemBilirubin [Mass/Vol]1.0 mg/dLNormal0.0 - 1.1 mg/dLRemisol ChemBilirubin.direct [Mass/Vol] 0.2 mg/dLNormal0.0 - 0.4 mg/dLRemisol ChemBilirubin.indirect [Mass or moles/Vol] 0.8 mg/dLNormal0.1 - 0.9 mg/dLRemisol ChemCalcium [Mass/Vol]9.9 mg/dLNormal8.9 - 11.1 mg/dLRemisol ChemChloride [Moles/Vol]109 mmol/AMcvfot040 - 111 mmol/L Remisol ChemCO2 [Moles/Vol]20 mmol/LLow21 - 31 mmol/LRemisol ChemCreatinine [Mass/Vol]0.6 mg/dLNormal0.5 - 1.3 mg/dLRemisol LroawMLF506 mL/min/1.73 s5Sejrak >=59mL/min/1.73 t6Upyhdgn ChemGlobulin (S) [Mass/Vol]3.5 g/dLNormal1.4 - 4.0 gm/dLRemisol ChemGlucose [Mass/Vol]95 mg/hGWqgddx57 - 199 mg/dLRemisol Chem Lipase [Catalytic activity/Vol]10 U/LLow13 - 58 unit/LRemisol ChemMagnesium [Mass/Vol]1.7 mg/dLNormal1.3 - 2.4 mg/dLRemisol ChemPotassium [Moles/Vol]4.0 mmol/LNormal3.5 - 5.3 mmol/LRemisol ChemProtein [Mass/Vol]8.5 g/dLHigh6.0 - 7.8 gm/dLRemisol ChemSodium [Moles/Vol]137 mmol/MVfubnq325 - 145 mmol/LRemisol Chem Urea nitrogen [Mass/Vol]11 mg/dLNormal5 - 21 mg/dLRemisol ChemUrea nitrogen/Creatinine [Mass ratio]18 mg/soTukfut27 - 20Remisol ChemCOAGULATION Ordered By: Felecia Montes on 20-48-8726nVJK Coag (PPP) [Time]34.5 wBjjfhg81.1 - 36.5 second(s)[facility] Auto CoagComment on above:Interpretive Data: Parameter 15 days - 4 weeks 1 - 5 months 6 - 11 months 1 - 5 years 6 - 10 years 11 - 17 years PTT Mean: 35.4 (27.6-45.6) Mean: 33.5 (24.8-40.7) Mean: 32.4 (25.1-40.7) Mean: 31.6 (24.0-39.2) Mean: 31.6 (26.9-38.7) Mean: 31.0 (24.6-38.4) Pediatric Reference ranges were obtained from a study by sherron Blanco al. prepared from 1437 samples obtained at 7 different centers using the same coagulation reagent and instrumentation as [facility]. Currently there are no coagulation studies available worldwide for children to 14 days, andno normal ranges. Heparin therapeutic range (represented by Anti-Factor Xa activity of 0.2 - 0.4 U/mL) corresponds to PTT of 56.6 - 109.0 sec.INR Coag (PPP) [Relative time]1.04 {INR}Invalid Interpretation CodeLINDSAY MUNICIPAL HOS[facility] [place] Auto CoagComment on above:Interpretive Data: INR results are specifically intended to assess patients stabilized on long-term Anticoagulation therapy suggested INR s Less Intensive Anticoagulation 2.0 3.0 Conventional Range 3.0 4.5PT Coag (PPP) [Time]11.7 sNormal9.4 - 12.5 second(s) [facility] Auto CoagComment on above:Interpretive Data: 15 days - 4 weeks 1 - 5 months 6 -11 months 1-5 years 6-10 years 11 -17 years Mean: 11.2 (9.5-12.6) Mean: 11.0 (9.7-12.8) Mean: 11.0 (9.8-13.0) Mean: 11.3 (9.9-13.4) Mean: 11.7 (10.0-14.6) Mean: 11.8 (10.0 - 14.1) Pediatric Reference ranges were obtained from a study by Son Vega et al. prepared from 1437 samples obtained at 7 different centers using the same coagulation reagent and instrumentation as [facility]. Currently there are no coagulation studies available worldwide for children to 14 days, andno normal ranges.HEMATOLOGYOrdered By: SYSTEM SYSTEM on 44-87-2179Xlntvcxde/100 WBC (Bld)0.0 %Normal0.0 - 2.0 %Remisol HemeBasophils/Leukocytes Auto (Bld) [Pure # fraction]0.0 E9/LNormal0.0 - 0.2 E9/LRemisol HemeEosinophils (Bld) [#/Vol]0.1 E9/LNormal0.0 - 0.5 E9/LRemisol HemeEosinophils/100 WBC (Bld)0.8 %Normal0.0 - 8.0 %Remisol HemeErythrocyte distribution width (RBC) [Ratio]13.5 %Gaoxez81.9 - 14.2 %Remisol HemeHematocrit (Bld) [Volume fraction]43.2 %Myjyrh32.0 - 46.0 % Remisol HemeHemoglobin (Bld) [Mass/Vol]14.5 g/oBApckzf47.0 - 16.0 gm/dLRemisol HemeLymphocytes (Bld) [#/Vol]0.7 E9/LLow1.0 - 4.0 E9/LRemisol Heme Lymphocytes/100 WBC (Bld)4.9 %Low14.0 - 50.0 %Remisol HemeMCH (RBC) [Entitic mass]29.9 etSyugtw46.0 - 34.0 pgRemisol HemeMCHC (RBC) [Mass/Vol]33.5 g/dLNormal 31.4 - 36.0 gm/dLRemisol HemeMCV (RBC) [Entitic vol]89.0 zVScvbvw86.0 - 100.0 fL Remisol HemeMonocytes (Bld) [#/Vol]0.5 E9/LNormal0.2 - 1.0 E9/LRemisol Heme Monocytes/100 WBC (Bld)4.0 %Normal4.0 - 14.0 %Remisol HemeNeutrophils (Bld) [#/Vol]12.4 E9/LHigh2.0 - 7.5 E9/LRemisol HemeNeutrophils/100 WBC (Bld)90.3 % High36.0 - 75.0 %Remisol HemePlatelet mean volume (Bld) [Entitic vol]9.0 fL Normal6.4 - 10.8 fLRemisol HemePlatelets (Bld) [#/Vol]325.0 E9/ISjqvmf702.0 - 500.0 E9/LRemisol HemeRBC (Bld) [#/Vol]4.8 E12/LNormal4.3 - 5.9 E12/LRemisol HemeWBC corrected for nucl RBC Auto (Bld) [#/Vol]13.7 E9/LHigh4.0 - 11.0 E9/L Remisol HemeSEROLOGYOrdered By: Felecia Case on 31-62-8917Xueg HCG ( test) QlNegative (01/19/24 1:30 PM)NormalLINDSAY [facility]IP[facility] [place] Man SeroURINALYSISOrdered By: SYSTEM SYSTEM on 33-24-1746Hepaw (U)Light-Yellow 1 (01/19/24 3:41 PM)NormalYellowLINDSAY MUNICIPAL HOS[facility] [place] UA Auto SSComment on above:Interpretive Data: Microscopic readings are only performed on those samples that meet specific criteria set forth by [facility].Glucose (U) [Mass/Vol]NegativeNormalNegativemg/dLLINDSAY MUNICIPAL HOS[facility] [place] UA Auto SSKetones Ql (U)1+ mg/dL Invalid Interpretation CodeNegativemg/dLLINDSAY MUNICIPAL [facility] [place] UA Auto SSUA BloodNegativeNormal Negativemg/dLLINDSAY MUNICIPAL [facility] UA Auto SSUA ClarityClear (01/19/24 3:41 PM)NormalClearFTMC UA Auto SSUA Leuk EstNegativeNormal NegativeLeu/uLFT UA Auto SSUA NitriteNegativeNormalNegativemg/dLLINDSAY MUN[facility]IPAL [facility] UA Auto SSUA pH5.5 *NA* (01/19/24 3:41 PM)Invalid Interpretation Code5.0 - 9.0[facility] UA Auto SSUA Protein NegativeNormalNegativemg/dLLINDSAY MUNICIPAL [facility] UA Auto SSUA Spec Grav1.016 *NA* (01/19/24 3:41 PM)Invalid Interpretation Code1.005 - 1.030[facility] UA Auto SSUA UrobilinogenNegativeNormalNegativemg/dLLINDSAY MUNICIPAL [facility] UA Auto SSUrobilinogen (U) [Mass/Vol]NegativeNormalNegativemg/dLLINDSAY MUN[facility]IPAL [facility] UA Auto SSURINALYSISOrdered By: Estrellita Chester on 53-36-7260GO Spec DescClean Catch (01/19/24 3:41 PM)NormalFT UA Auto S[facility]M TOMOSYNTHESIS DIAGNOSTIC BIon 08-08-[address] [address] Mammography Report Signed Patient: Nancie Fuentes MR#: [id number] : 2005 Acct:[id number] Age/Sex: 18 / F ADM Date: 08/08/23 Loc: US Attending Dr: Kyrstin Maharaj Ordering Physician: Krystin Maharaj Results: Date of Service: 08/08/23 Follow Up: Procedure(s): MM tomosynthesis diagnostic BI Accession Number(s): [id number] cc: Krystin Maharaj; Pj Kelley D.O. Patient: NANCIE FUENTES. Exam Date: 08/08/2023 : 2005 Gender:F Ordering : ALON Maharaj . Admission #: [id number] Family : Order #: [id number] CLICK HERE TO VIEW EXAM RADIOLOGY REPORT PROCEDURE: MAMMOGRAM DIAGNOSTIC 3D BILATERAL CAD, 08/08/2023, 14:10 US BREAST LT COMPLETE, 08/08/2023, 13:24 COMPARISON: None. INDICATIONS: Palpable lump left breast 12 o'clock Calculator Name NCI Breast Cancer Risk Assessment Tool 5 Year Breast Cancer Risk Not Applicable. Lifetime Breast Cancer Risk Not Applicable. Personal Breast Cancer No Personal Ovarian Cancer No Treatments None Family Cancers Grandmother-maternal with breast cancer at age 50. LOCATION: [facility] BREAST COMPOSITION: Extremely dense, which lowers the sensitivity of mammography. FINDINGS: DIAGNOSTIC CATEGORY 1--NEGATIVE. RIGHT BREAST: No significant suspicious finding. Skin surface marker localizing the palpable lump to the anterior 12 o'clock breast appears to overlie dense fibroglandular tissue. No mammographic abnormality. Ultrasound evaluation in area of palpable lump demonstrates normal appearing dense fibroglandular tissue. LEFT BREAST: No significant suspicious finding. RECOMMENDATIONS: CLINICAL EVALUATION. PLEASE NOTE: A NORMAL MAMMOGRAM DOES NOT EXCLUDE THE POSSIBILITY OF BREAST CANCER. A CLINICALLY SUSPICIOUS PALPABLE LUMP SHOULD BE BIOPSIED. Dictated by: Adeel Perry M.D. on 08/08/2023 at 14:52 Approved by: Adeel Perry M.D. on 08/08/2023 at 14:55 Dictated By: Adeel Perry M.D. Signed By: 08/11/23 1042 DD/ 1455 TD/TT: Service Delivery Supervisor:TBHRadiology, Radiologist, MD - 08/11/2023 [place] [address] Mammography Report Signed Patient: Nancie Fuentes MR#: [id number] : 2005 Acct:[id number] Age/Sex: 18 / F ADM Date: 08/08/23 Loc: US Attending Dr: Krystin Maharaj Ordering Physician: Krystin Maharaj Results: Date of Service: 08/08/23 Follow Up: Procedure(s): MM tomosynthesis diagnostic BI Accession Number(s): [id number] cc: Krystin Maharaj; Pj Kelley D.O. Patient: NANCIE FUENTES. Exam Date: 08/08/2023 : 2005 Gender:F Ordering : ALON Maharaj . Admission #: [id number] Family : Order #: [id number] CLICK HERE TO VIEW EXAM RADIOLOGY REPORT PROCEDURE: MAMMOGRAM DIAGNOSTIC 3D BILATERAL CAD, 08/08/2023, 14:10 US BREAST LT COMPLETE, 08/08/2023, 13:24 COMPARISON: None. INDICATIONS: Palpable lump left breast 12 o'clock Calculator Name NCI Breast Cancer Risk Assessment Tool 5 Year Breast Cancer Risk Not Applicable. Lifetime Breast Cancer Risk Not Applicable. Personal Breast Cancer No Personal Ovarian Cancer No Treatments None Family Cancers Grandmother-maternal with breast cancer at age 50. LOCATION: [facility] BREAST COMPOSITION: Extremely dense, which lowers the sensitivity of mammography. FINDINGS: DIAGNOSTIC CATEGORY 1--NEGATIVE. RIGHT BREAST: No significant suspicious finding. Skin surface marker localizing the palpable lump to the anterior 12 o'clock breast appears to overlie dense fibroglandular tissue. No mammographic abnormality. Ultrasound evaluation in area of palpable lump demonstrates normal appearing dense fibroglandular tissue. LEFT BREAST: No significant suspicious finding. RECOMMENDATIONS: CLINICAL EVALUATION. PLEASE NOTE: A NORMAL MAMMOGRAM DOES NOT EXCLUDE THE POSSIBILITY OF BREAST CANCER. A CLINICALLY SUSPICIOUS PALPABLE LUMP SHOULD BE BIOPSIED. Dictated by: Adeel Perry M.D. on 08/08/2023 at 14:52 Approved by: Adeel Perry M.D. on 08/08/2023 at 14:55 Dictated By: Adeel Perry M.D. Signed By: 08/11/23 1042 DD/ 1455 TD/TT: Service Delivery Supervisor: MARY ANN Rubio InformationOrdered By: Radiologist Radiology on 30-28-9833ZGDW icomasoft Work Phone: No Panel Informationon 35-28-5981Oqfqpjbqn Study observation (narrative)MARY ANN Merlos Breast - lefton 89-07[address] [place] [address] Ultrasound Report Signed Patient: Nancie Fuentes MR#: [id number] : 2005 Acct:[id number] Age/Sex: 18 / F ADM Date: 08/08/23 Loc: US Attending Dr: Krystin Maharaj Ordering Physician: Krystin Maharaj Date of Service: 08/08/23 Procedure(s): US breast LT complete Accession Number(s): [id number] cc: Krystin Maharaj; Pj Kelley D.O. Patient: NANCIE FUENTES Exam Date: 08/08/2023 : 2005 Gender:F Ordering : ALON Maharaj . Admission #: [id number] Family : Order #: [id number] CLICK HERE TO VIEW EXAM RADIOLOGY REPORT PROCEDURE: MAMMOGRAM DIAGNOSTIC 3D BILATERAL CAD, 08/08/2023, 14:10 US BREAST LT COMPLETE, 08/08/2023, 13:24 COMPARISON: None. INDICATIONS: Palpable lump left breast 12 o'clock Calculator Name NCI Breast Cancer Risk Assessment Tool 5 Year Breast Cancer Risk Not Applicable. Lifetime Breast Cancer Risk Not Applicable. Personal Breast Cancer No Personal Ovarian Cancer No Treatments None Family Cancers Grandmother-maternal with breast cancer at age 50. LOCATION: [facility] BREAST COMPOSITION: Extremely dense, which lowers the sensitivity of mammography. FINDINGS: DIAGNOSTIC CATEGORY 1--NEGATIVE. RIGHT BREAST: No significant suspicious finding. Skin surface marker localizing the palpable lump to the anterior 12 o'clock breast appears to overlie dense fibroglandular tissue. No mammographic abnormality. Ultrasound evaluation in area of palpable lump demonstrates normal appearing dense fibroglandular tissue. LEFT BREAST: No significant suspicious finding. RECOMMENDATIONS: CLINICAL EVALUATION. PLEASE NOTE: A NORMAL MAMMOGRAM DOES NOT EXCLUDE THE POSSIBILITY OF BREAST CANCER. A CLINICALLY SUSPICIOUS PALPABLE LUMP SHOULD BE BIOPSIED. Dictated by: Adeel Perry M.D. on 08/08/2023 at 14:52 Approved by: Adeel Perry M.D. on 08/08/2023 at 14:55 Dictated By: Adeel Perry M.D. Signed By: 08/08/23 1456 DD/ TD/TT: Service Delivery Supervisor:TBHRadiology, Radiologist, MD - 08/11/2023 [place] [address] Ultrasound Report Signed Patient: Nancie Fuentes MR#: [id number] : 2005 Acct:[id number] Age/Sex: 18 / F ADM Date: 08/08/23 Loc: US Attending Dr: Krystin Maharaj Ordering Physician: Krystin Maharaj Date of Service: 08/08/23 Procedure(s): US breast LT complete Accession Number(s): [id number] cc: Krystin Maharaj; Pj Kleley D.O. Patient: NANCIE FUENTES Exam Date: 08/08/2023 : 2005 Gender:F Ordering : ALON Maharaj . Admission #: [id number] Family : Order #: [id number] CLICK HERE TO VIEW EXAM RADIOLOGY REPORT PROCEDURE: MAMMOGRAM DIAGNOSTIC 3D BILATERAL CAD, 08/08/2023, 14:10 US BREAST LT COMPLETE, 08/08/2023, 13:24 COMPARISON: None. INDICATIONS: Palpable lump left breast 12 o'clock Calculator Name NCI Breast Cancer Risk Assessment Tool 5 Year Breast Cancer Risk Not Applicable. Lifetime Breast Cancer Risk Not Applicable. Personal Breast Cancer No Personal Ovarian Cancer No Treatments None Family Cancers Grandmother-maternal with breast cancer at age 50. LOCATION: [facility] BREAST COMPOSITION: Extremely dense, which lowers the sensitivity of mammography. FINDINGS: DIAGNOSTIC CATEGORY 1--NEGATIVE. RIGHT BREAST: No significant suspicious finding. Skin surface marker localizing the palpable lump to the anterior 12 o'clock breast appears to overlie dense fibroglandular tissue. No mammographic abnormality. Ultrasound evaluation in area of palpable lump demonstrates normal appearing dense fibroglandular tissue. LEFT BREAST: No significant suspicious finding. RECOMMENDATIONS: CLINICAL EVALUATION. PLEASE NOTE: A NORMAL MAMMOGRAM DOES NOT EXCLUDE THE POSSIBILITY OF BREAST CANCER. A CLINICALLY SUSPICIOUS PALPABLE LUMP SHOULD BE BIOPSIED. Dictated by: Adeel Perry M.D. on 08/08/2023 at 14:52 Approved by: Adeel Perry M.D. on 08/08/2023 at 14:55 Dictated By: Adeel Perry M.D. Signed By: 08/08/231455 DD/ 54 TD/TT: Service Delivery Supervisor: MARY ANN JohansenThrjean Cultureon 57-06-3142Ppgbfz cultureHeavy Normal Respiratory Monica 2 Days PERFORMED BY: [place] [address] PATHOLOGIST HELICOPTER TECHNICIAN JUSTIN POOLE M.D.Chillicothe HospitalComment on above: Performed By: #### CUT #### [place] [address] USAUS PELVIS AND TRANSVAGon 67-30-2298JG PELVIS AND TRANSVAG EXAMINATION: US PELVIS AND TRANSVAG HISTORY: Pelvic and perineal pain COMPARISON: 05/01/2021 FINDINGS: Transabdominal and transvaginal images The uterus is normal in size, contour and myometrial echotexture with no focal mass. The uterus measures 7.2 x 3.2 x 4.4 cm. The uterus is retroverted The endometrium measures 3 mm, normal. The right ovary is normal in appearance measuring 3.3 x 2.8 x 2.0 cm. Areas of anechoic echogenicity measuring up to 1.2 cm, follicles versus cysts. Normal color and Doppler flow The left ovary is normal in appearance measuring 2.8 x 1.3 x 1.7 cm. Normal color and Doppler flow No free fluid IMPRESSION: No acute abnormality Electronically authenticated by: KENJI MARVIN Date: 2022-11-04 09:07[facility] HospitalCHLAMYDIA/GONOCOCCUS SHI (SWAB/URINE/PAPon 88-65-6706Ltovoqmtc trachomatis, NAANegativeNormalNegativeUniversity Hospitals Portage Medical CenterComment on above: Performed By: #### CT/NGNA #### [facility] [address] [place] [address] Dr. Charles RamirezNeisseria gonorrhoeae, NAANegativeNormalNegativeUniversity Hospitals Portage Medical CenterComment on above:Performed By: #### CT/NGNA #### [facility] [address] [place] [address] Dr. Charles RamirezVAGINITIS/VAGINOSIS DNA PROBEon 35-96-0721Ptgecrp speciesNegative NormalNegativeUniversity Hospitals Portage Medical CenterComment on above:Performed By: #### VAGINT #### [facility] [address] [place] [address] Dr. Charles RamirezGardnerella vaginalisNegativeSarasotaNegativeUniversity Hospitals Portage Medical Center Comment on above:Performed By: #### VAGINT #### [facility] [address] [place] [address] Dr. Charles RamirezTrichomonas vaginalisNegativeSarasotaNegativeUniversity Hospitals Portage Medical Center Comment on above:Performed By: #### VAGINT #### [facility] [address] [place] [address] Dr. Charles Smith W MANUAL DIFFon 80-11-2975GUMDNQDI LYMPH #NormalUniversity Hospitals Portage Medical CenterComment on above:Performed By: #### CBCMAN #### [facility] [address] [place] [address] Dr. Charles RamirezATYPICAL LYMPH %NormalUniversity Hospitals Portage Medical CenterComment on above: Performed By: #### CBCMAN #### [facility] [address] [place] [address] Dr. Charles Major #0.0 103/ulNormal0.0-0.3The Flower HospitalComment on above:Performed By: #### CBCMAN #### [facility] [address] [place] [address] Dr. Charles Major %0 %Normal0-5The Flower HospitalComment on above:Performed By: #### JORGEMAN #### [facility] [address] [address] [address] Charles Lincoln #0.00 103/ulNormal0.00-0.10The Flower HospitalComment on above:Performed By: #### CBCALONSO #### [facility] [address] [address] [address] Charles Lincoln %0.0 %Critically low0.2-2.0The Flower HospitalComment on above:Performed By: #### CBCALONSO #### [facility] [address] [address] [address] Charles Hunt #NormalThe Flower HospitalComment on above:Performed By: #### ERIN #### [facility] [address] [place] [address] Dr. Charles Hunt %NormalThe Flower HospitalComment on above:Performed By: #### ERIN #### [facility] [address] [place] [address] Dr. Charles RamirezCORRECTED WBCNormal4.0-11.0The [facility]lower HospitalComment on above: Performed By: #### ERIN #### [facility] [address] [place] [address] Dr. Charles Sharpe #0.00 103/ulNormal0.00-0.70The [facility] HospitalComstraith hospital for special surgery on above:Performed By: #### ERIN #### [facility] [address] [place] [address] Dr. Charles Sharpe%0.0 %Critically low0.9-7.0The Flower HospitalComment on above:Performed By: #### ERIN #### [facility] [address] [place] [address] Dr. Charles RamirezHCT39.2 %Hjvdjb25.0-48.0The [facility] HospitalComment on above: Performed By: #### CBCALONSO #### [facility] [address] [place] [address] Dr. Charles RamirezHGB13.5 g/yiTxrioq64.0-16.0The [facility] HospitalComment on above: Performed By: #### ERIN #### [facility] [address] [address] [address] Charles Stein #1.73 103/ulNormal1.20-3.80The [facility] HospitalComment on above:Performed By: #### ERIN #### [facility] [address] [address] [address] Charles Stein%17.0 %Critically low20.5-60.0The [facility] HospitalComment on above:Performed By: #### ERIN #### [facility] [address] [address] [address] Charles LeyvaH29.2 nyPmmvov98.7-34.0The [facility] HospitalComment on above: Performed By: #### ERIN #### [facility] [address] [address] [address] Charles LeyvaHC34.4 g/xtIjbgyf64.9-35.2The [facility] HospitalComment on above:Performed By: #### ERIN #### [facility] [address] [address] [address] Charles LeyvaV84.7 dXYpwrbv94.0-99.0The [facility] HospitalComment on above: Performed By: #### ERIN #### [facility] [address] [address] [address] Charles WoodwardOCYTE #NormalThe [facility]lower HospitalComment on above: Performed By: #### ERIN #### [facility] [address] [address] [address] Charles WoodwardOCYTE %NormalThe [facility] HospitalComment on above: Performed By: #### ERIN #### [facility] [address] [address] [address] Charles Gibbs#1.12 103/ulCritically high0.30-0.80The [facility] on above:Performed By: #### ERIN #### [facility] [address] [address] [address] Charles Gibbs%11.0 %Normal1.7-12.0The [facility] HospitalComment on above: Performed By: #### ERIN #### [facility] [address] [place] [address] Dr. Charles RamirezMPV10.5 fLNormal9.5-13.5The [facility] HospitalComment on above: Performed By: #### CBCALONSO #### [facility] [address] [address] [address] Charles Castro #NormalUniversity Hospitals Portage Medical CenterComment on above:Performed By: #### ERIN #### [facility] [address] [place] [address] Dr. Charles Castro %NormalUniversity Hospitals Portage Medical CenterComment on above:Performed By: #### ERIN #### [facility] [address] [place] [address] Dr. Charles RamirezNRBCNormalThe [facility]lower HospitalComment on above:Performed By: #### ERIN #### [facility] [address] [place] [address] Dr. Charles CastellanosT314 103/aiZibdjz184-648Fwt [facility] HospitalComment on above: Performed By: #### ERIN #### [facility] [address] [place] [address] Dr. Charles RamirezRBC4.63 106/ulNormal4.20-5.40The [facility] HospitalComment on above:Performed By: #### ERIN #### [facility] [address] [place] [address] Dr. Charles RamirezRDW13.2 %Tuzkob20.0-15.0The [facility] HospitalComment on above: Performed By: #### ERIN #### [facility] [address] [place] [address] Dr. Charles Jang #7.34 103/ulCritically high1.40-6.50The [facility] on above:Performed By: #### ERIN #### [facility] [address] [place] [address] Dr. Charles Jang %72.0 %Otcelo75.0-75.0The [facility] Orrville Hospitalment on above: Performed By: #### CBCMAN #### [facility] [address] [place] [address] Dr. Charles RamirezWBC10.2 103/ulNormal4.0-11.0The [facility] HospitalComment on above:Performed By: #### CBCMAN #### [facility] [address] [place] [address] Dr. Charles RamirezCovid-19 PCR (CVDTBH)on 22-39-9157NVDX-CoV-2 (COVID-19) RNA SHI+probe Ql (Unsp spec)DetectedCritically abnormalNOT DETECTEDThe [facility] on above:Result Comment: This test is not yet approved or cleared by the [place] FDA. When there are no FDA-approved or cleared tests available, and other criteria are met, FDA can make tests available under an emergency access mechanism called an Emergency Use Authorization (EUA). The EUA for this test is supported by the [place] of Health and Human Service's declaration that circumstances exist to justify the emergency use of in vitro diagnostics for the detection and/or diagnosis of the virusthat causes COVID-19. This EUA will remain in effect for the duration of the COVID-19 declaration ju stifying emergency of IVDs, unless it is terminated or revoked by the FDA (after which the test mayno longer be used).Performed By: #### CVDTBH #### [facility] [address] [place] [address] Dr. Charles RamirezPROF 14(COMP METB)on 94-28-4787Owqmkjm [Mass/Vol]4.2 g/dLNormal 3.4-5.0The [facility]lower HospitalComment on above:Performed By: #### CMP #### [facility] [address] [place] [address] Dr. Charles RamirezAlbumin/Globulin [Mass ratio]1.1 {ratio}NormalThe [facility]lower HospitalComstraith hospital for special surgery on above:Performed By: #### CMP #### [facility] [address] [address] [address] Charles NuñezP [Catalytic activity/Vol]83 U/RMcjfhx41-094Mwj [facility]lower HospitalComment on above:Performed By: #### CMP #### [facility] [address] [address] [address] Charles NuñezT [Catalytic activity/Vol]12 U/LCritically pec24-05Rws [facility] HospitalComment on above:Performed By: #### CMP #### [facility] [address] [address] [address] Charles Newell gap [Moles/Vol]13.5 mmol/LNormalThe [facility] Comment on above:Performed By: #### CMP #### [facility] [address] [address] [address] Charles RamirezAST [Catalytic activity/Vol]9 U/LCritically sga35-21Kiw [facility] HospitalComment on above:Performed By: #### CMP #### [facility] [address] [address] [address] Charles RamirezBilirubin [Mass/Vol]0.4 mg/dLNormal0.2-1.0[facility] Comment on above:Performed By: #### CMP #### [facility] [address] [place] [address] Dr. Charles RamirezCalcium [Mass/Vol]9.2 mg/dLNormal8.5-10.1[facility] Comment on above:Performed By: #### CMP #### [facility] [address] [place] [address] Dr. Charles RamirezChloride [Moles/Vol]104 mmol/UMhbbkn50-415Zqk [facility] Comment on above:Performed By: #### CMP #### [facility] [address] [address] [address] Charles RamirezCO2 [Moles/Vol]24.2 mmol/WBznolf88.0-32.0The [facility] Comment on above:Performed By: #### CMP #### [facility] [address] [place] [address] Dr. Charles RamirezCreatinine [Mass/Vol]0.77 mg/dLNormal0.55-1.02The [facility] HospitalComment on above:Performed By: #### CMP #### [facility] [address] [place] [address] Dr. Charles FaulknerGFR-AF SRI LANKAN>60Normal>=60The [facility] HospitalComment on above:Performed By: #### CMP #### [facility] [address] [address] [address] Charles FaulknerGFR-NON AF SRI LANKAN>60Normal>=60The [facility] HospitalComment on above:Performed By: #### CMP #### [facility] [address] [place] [address] Dr. Charles RamirezGlobulin (S) [Mass/Vol]3.8 g/dLNormalThe [facility] HospitalComment on above:Performed By: #### CMP #### [facility] [address] [place] [address] Dr. Charles RamirezGlucose [Mass/Vol]94 mg/fRXwzbfk70-705ZeqUniversity Hospitals Portage Medical Center Comment on above:Performed By: #### CMP #### [facility] [address] [place] [address] Dr. Charles RamirezPotassium [Moles/Vol]3.7 mmol/LNormal3.5-5.1[facility] Comment on above:Performed By: #### CMP #### [facility] [address] [place] [address] Dr. Charles RamirezProtein [Mass/Vol]8.0 g/dLNormal6.4-8.2The [facility] Comment on above:Performed By: #### CMP #### [facility] [address] [place] [address] Dr. Charles RamirezSodium [Moles/Vol]138 mmol/MEwgkjt327-440WzmUniversity Hospitals Portage Medical Center Comment on above:Performed By: #### CMP #### [facility] [address] [place] [address] Dr. Charles RamirezUrea nitrogen [Mass/Vol]6.0 mg/dLCritically low6.4-19.3The [facility] HospitalComment on above:Performed By: #### CMP #### [facility] [address] [place] [address] Dr. Charles RamirezUrea nitrogen/Creatinine [Mass ratio]7.8 mg/mgNoMarietta Osteopathic ClinicComment on above:Performed By: #### CMP #### [facility] [address] [address] [address] Charles RamirezXR CHEST 1 Von 82-86-6327IQ CHEST 1 VEXAMINATION: XR CHEST 1 V, , 09/04/2022 7:39 PM EST INDICATION: COUGH HISTORY: Ordering Provider Reason for Exam: Technologist Note: Additional: COMPARISON: Chest x-ray dated 05/14/2020. TECHNIQUE: Chest x-ray: One view. FINDINGS: No pneumothorax, pleural effusion or focal airspace consolidation. Heart is normal in size. Bony thorax is unremarkable. IMPRESSION: No acute cardiopulmonary process. Electronically authenticated by: ANUJ BAY Date: 2022-09-04 20:00[facility] Vital Signs Date TimeVital SignValuePerforming TvmqtabmpHiwmdwmp24-38-8728 09:52-0500Body mass index (BMI) [Ratio]22.67 kg/e9Ltqby Warren DO Work Phone: [facility] CenterYibouepswo02-35-3883 09:52-0500Body upotcw17.8 kg [employer] DO Work Phone: [phone] CenterCholhhivnf90-69-6740 09:52-0500Diastolic blood mm[Hg]PjKleero DO Work Phone: [facility] CenterVrlofxemax03-45-5156 09:52-0500Systolic blood xtnutlzg921 mm[Hg][employer] DO Work Phone: [facility] CenterYmnrtoktmd69-85-6214 14:52-0500Body mass index (BMI) [Ratio]26.26 kg/q1Ajqqd Fazio DO Work Phone: [facility] CenterFhzkwepghm93-42-7649 14:52-0500Body nkpyci72.58 kgCorey Warren DO Work Phone: [facility] CenterVegzjadfuw33-17-9262 14:52-0500Diastolic blood ydejpnym97 mm[Hg]Pj Warren DO Work Phone: [facility] CenterSgemytxdew05-83-2987 14:52-0500Systolic blood mm[Hg]Pjchris Andinoo DO Work Phone: [facility] CenterWdwhtlfggz24-39-1587 10:02-0500Blood Pressure LocationNovant Health [facility] [phone]-Vhpzq[address] [place], [place] 29[address]11-14-2024 10:02-0500Diastolic blood mm[Hg][facility] [phone]-Oxwfl[address] [place], [place] [address]11-14-2024 10:02-0500Heart rate92 /[facility] 183-4242Glnrku-Pembr[address] [place], [place] [address]11-14-2024 10:02-3195EhS3% (BldA) [Mass fraction]98 %[facility] 522-7630Zzaxjf-Yefmz[address] [place], [place] 29[address]11-14-2024 10:02-0500Systolic blood ujikdjky203 mm[Hg][facility] [phone]-Fycjp[address] [place], [place] 29[address]704-08-2024 17:53-0400Diastolic blood yzolkcjd28 mm[Hg][facility]04-08-2024 17:53-0400Heart rate91 /minUniversity Hospitals St. [facility] Medical Center04-08-2024 17:53-0400Hourly RoundingUniversity Hospitals St. [facility] Medical Center04-08-2024 17:53-0400Respiratory rate18 /minAstrOhioHealth Southeastern Medical Center04-08-2024 17:53-5296PfL6% (BldA) [Mass fraction]99 %[facility]04-08-2024 17:53-0400Systolic blood pressure 114 mm[Hg][facility]04-08-2024 16:44-0400 Diastolic blood zwuoevaj42 mm[Hg][facility] 01-19-2024 16:44-0400Heart rate87 /minUniversity Hospitals St. [facility]04-08-2024 16:44-0400Hourly RoundingUniversity Hospitals St. [facility] Center04-08-2024 16:44-0400Respiratory rate16 /minUniversity Hospitals St. [facility]04-08-2024 16:44-9305FbO9% (BldA) [Mass fraction]97 %[facility]04-08-2024 16:44-0400Systolic blood pressure 98 mm[Hg][facility]04-08-2024 15:43-0400 Diastolic blood jlusnpaa77 mm[Hg][facility] 01-19-2024 15:43-0400Heart rate88 /minUniversity Hospitals St. [facility]04-08-2024 15:43-0400Hourly RoundingUniversity Hospitals St. [facility]04-08-2024 15:43-0400Respiratory rate16 /minUniversity Hospitals St. [facility] Center04-08-2024 15:43-2677OaI6% (BldA) [Mass fraction]97 %[facility]04-08-2024 15:43-0400Systolic blood pressure 119 mm[Hg][facility]04-08-2024 13:15-0400Body avrgubufdfy34.88 [degF][facility]10-24-2023 13:00-0400Body wduxzf141.1 cmSarahcyrus Adams Other [employer] Other 10-24-2023 13:00-0400Body mass index (BMI) [Ratio] 24.16 kg/q6PbydscwrAletha Adams Other [employer] Other 10-24-2023 13:00-0400Body nlqyoitydjx32.7 [degF] Aletha Grandearney Other [employer] Other 10-24-2023 13:00-0400Body .86 kgAletha Adams Other [employer] Other 10-24-2023 13:00-0400Diastolic blood fobehybq08 mm[Hg] Aletha Grandearney Other [employer] Other 10-24-2023 13:00-0400Respiratory rate18 /minAletha Grandearney Other [employer] Other 10-24-2023 13:00-2346SlA0% (BldA) [Mass fraction]98 % Aletha Bryan Other [employer] Other 10-24-2023 13:00-0400Systolic blood mm[Hg] Aletha Adams Other [employer] Other 01-05-2023 14:00-0500Body rhgylp272.1 cmDana [employer]obi Other [employer] Other 01-05-2023 14:00-0500Body mass index (BMI) [Ratio] 29.28 kg/m2D[employer] Other [employer] Other 01-05-2023 14:00-0500Body alfowejmyls93 [degF]Eula Londono Other [employer] Other 01-05-2023 14:00-0500Body ppbwen88.83 kgEula Londono Other [employer] Other 01-05-2023 14:00-0500Diastolic blood mm[Hg] Eula Londono Other [email or web address] Other 01-05-2023 14:00-0500Respiratory rate20 /minDkennedy Londono Other [employer] Other 01-05-2023 14:00-0622JnL4% (BldA) [Mass fraction]99 % Eula Londono Other [employer] Other 01-05-2023 14:00-0500Systolic blood ipvaanne022 mm[Hg] Eula Londono Other [employer] Other Encounters Encounter DateEncounter TypeCare ProviderFacilityStart: 08-15-2025 End: 88-24-4792Zusqqd flowsheetCorey Warren DO Work Phone: [facility] OBGYNStart: 08-15-2025 End: 42-89-3605Ttxtje flowsheetCorey Warren DO Work Phone: [facility] [place] OBGYNStart: 08-15-2025 End: 36-56-9393Kvflilw encounter procedureCorey Warren DO Work Phone: [facility] OBGYNComment on above:Encounter for other general counseling or advice on contraception; Insertion of NexplanonStart: 08-15-2025 End: 58-32-3102sqfxdapevkMANAL FAZIONot AvailableStart: 06-15-2025 End: 32-44-2886fbopqxohxlUvxxpa E. NorcrossFacility:FTMCStart: 03-14-2025 End: 72-55-4554aenefxgiwaBuxvajCande SalinasFacility:Mark Anthony PCStart: 03-14-2025 End: 09-08-4951Luymcbg encounter procedureMildred Salinas [phone]-TwrxeLima [facility] Hospital [facility] Start: 02-28-2025 End: 25-62-6572ompgcgfhscOumkmr E. NorcrossFacility:[facility] Anthony PCStart: 02-28-2025 End: 65-63-2219Rnuptvk encounter procedureMildred Salinas [phone]-IsktmLima Memorial Hospital [facility] Start: 02-22-2025 End: 92-64-4412wbcrpkzvhiRyfserCande SalinasFacility:[facility] Anthony PCStart: 02-22-2025 End: 89-49-4087Kokqovy encounter Alejandra [place] [phone]-SabjgLima Memorial Hospital [facility] Start: 01-17-2025 End: 07-02-2417pzsxgcpyzhIhdimpCande SalinasFacility:[facility] PCStart: 12-27-2024 End: 38-06-5633pctwrvpjpzOvwiqlCande SalinasFacility:[facility] PCStart: 10-18-2024 End: 29-27-3113Lyegudd encounter procedureCorey Warren DO Work Phone: noms [facility] OBComment on above:Nexplanon removalStart: 10-18-2024 End: 47-38-9629thaamhqpuwBJRDZ FAZIONot AvailableStart: 09-29-2024 End: 91-76-0887cmgpxyaarqNcuqmo E. NorcrossFacility:FTMCStart: 09-29-2024 End: 70-12-9466Fzkoofp encounter Alejandra Salinas [facility] Start: 08-26-2024 End: 66-33-2647uorpdproknKqegbe E. NorcrossFacility:[facility] Anthony PCStart: 08-26-2024 End: 75-75-1457Fnatlqv encounter procedureMildred [place] [phone]-LmeooLima Memorial Hospital [facility] Start: 04-10-0513whmjdhpproXlzlrg [place] Facility:[facility] PCStart: 06-30-2024 End: 94-86-6745cxryjjnwroYtiuu GudimellaFacility:[facility] HospitalStart: 06-30-2024 End: 50-77-6877Rpslslv encounter procedurePresherron Rojo [phone]-YaacnOhio Valley Hospital Start: 06-23-2024 End: 44-06-4586xiayawydwlDxonusvtz L ClarkFacility:[place] PCStart: 06-23-2024 End: 06-59-7840Lhznlpc encounter procedureLucero Zamora [phone]-OshzrLima [facility] Hospital [facility] Start: 06-07-2024 End: 11-90-3421Gxtpbqm encounter procedureLucero Zamora [phone]-XutuoLima Memorial Hospital [facility] Start: 01-19-2024 End: 54-83-4709Tyllilovl department patient visitAstrit Saúl NemoAvita Health System Start: 08-08-2023 End: 12-29-6932Jclgnmnma Result EncounterKrystin [facility] Work Phone: [facility] External Department UnsolicitedStart: 08-08-2023 End: 87-59-8559Bxqjlwuqz Result EncounterAmy Carol Ann [facility] Work Phone: NO[facility] External Department UnsolicitedStart: 08-05-2023 End: 70-58-6564yptywtypriOnuftjeo L BryanFacility:[facility] Jewish Hospitaltart: 09-11-2941Laqyml outpatient visit 25 minutesAletha GrandejovannaG Urgent Care ClydeStart: 08-05-2023 End: 28-88-5600trmhegndvfQSJovanniC Aletha Adams Work Phone: [facility] Work Phone: Start: 08-05-2023 End: 84-29-3283Cxhbiljw ReferredRANDY Adams Work Phone: [facility] [place] Work Phone: Start: 12-09-2022 End: 92-20-6962bhkeyzqospFfbv [facility] Other [employer] Other Start: 37-03-6036Yhzfpregr encounterDana [facility] Servicestart: 11-01-2022 End: 79-16-5367qlelgqkffjQS KENJI MARVINFacility:K8Pppgj: 10-30-2022 End: 53-50-0576effixyykefZX PJ KELLEY .Facility:W1Awocp: 10-24-2022 End: 32-16-0320klazlzlailMubm [facility] Other [employer] Other Start: 53-33-8426Cdjsqkqev by computer Kenna PlummerTexas Health Presbyterian Hospital of Rockwalltart: 10-21-2022 End: 43-62-0941ydzimgricsJekg [facility] Other [email or web address] Other Start: 21-32-9062Etsdkwywu encounterDana [facility]: 10-18-2022 End: 57-35-5883spywbpfnxmMhcw [facility] Other [email or web address] Other Start: 64-30-0663Dqjlkqxii encounterDana ElianTexas Health Presbyterian Hospital of Rockwallrt: 10-17-2022 End: 16-20-8436yjymezbiiwQkts [facility] Other [email or web address] Other Start: 81-04-3648Waoxlj outpatient new 45 minutesDaMemorial Medical Centertart: 10-11-2022 End: 82-06-2649coceiivlxzHgtibpcqb Breault Other [employer] Other Start: 79-43-8103Kbinisymo encounterStepmonica Reyes [facility] Hospitaltart: 09-11-2022 End: 23-76-9715ybohivvsjxGnzs [facility] Other noCasterStats [employer] Other Start: 16-37-5602Oxolxfbjg encounterDasimba PlummerTexas Health Presbyterian Hospital of Rockwalltart: 09-04-2022 End: 76-56-0948vfysaifumdAT YAKOV A NADERERFacility:H1 Procedures DateProcedureProcedure DetailPerforming ClinicianStart: 55-52-4573Zdtzc test visual color cmprsn methsCorey Warren DO Work Phone: Start: 33-77-9315Zfld non-biodegradable drug delivery implantCorey Warren DO Work Phone: Start: 37-80-3100HCN INSERTION/REMOVAL OF CONTRACEPTIVE CAPSULECorey Warren DO Work Phone: Start: 24-14-9254PR TOMOSYNTHESIS DIAGNOSTIC Beni Maharaj PA Work Phone: Start: 37-03-6133Qc breast uni real time with image completeKrystin [facility] Work Phone: Start: 95-62-5277Qoihuqgr anesthesiaRutherford Regional Health Systemdav Salinas TonsillectomyMildred Salinas Plan of Treatment DateCare ActivityDetailAuthorStart: 08-23-2025 End: 51-22-4970Rvscffg encounter siyyleyxg22/11/2025 3:00 PM EST Procedure Visit [facility] [address] [place] [id number] Krystin Maharaj PA [address] [place], [place] [id number] NOMMacey Peace OBGYNStart: 08-15-2025 End: 17-61-0548Tflwtgr encounter procedureNOMS Kobi OBGYNComment on above: ArrivedStart: 89-92-5876Rxkndsthc vaccinationInfluenza Vaccine (#1)[facility] HealthcareStart: 08-25-6147Lufmzs cultureThroat [facility] HospitalBacteria identified in Throat by [facility] Immunizations Immunization DateImmunizationNotesCare YnbqjkywFzrtzweb59-09-1481whtrdjoij A vaccine, unspecified formulationLucero Zamora [phone]-IumfvL[facility] Ymam07-21-4298KAO, unspecified formulationLucero Zamora [phone]-FzfbhLima [facility] Hospital [facility] Ccxe95-82-4731 tetanus toxoid, reduced diphtheria toxoid, and acellular pertussis vaccine, adsorbedLucero Zamora [phone]-DemmlSelect [facility]08-27-2008 diphtheria, tetanus toxoids and acellular pertussis vaccineLucero Zamora [phone]-NmcgfSelect Medical [facility]ty [facility]08-27-2008 measles, mumps and rubella virus vaccineLucero Zamora [address] [place], [place] 0125408-27-2008 poliovirus vaccine, unspecified formulationElimarianna Zamora [phone]-Mfrfq[address] [place], [place] 3054608-27-2008 varicella virus vaccineElizasari Zamora [address] [place], [place] 0125411-16-2006 measles, mumps, rubella, and varicella virus vaccineElizasari Zamora [address] [place], [place] 0125411-22-2004 diphtheria, tetanus toxoids and acellular pertussis vaccineElizabechioma Zamora [address] [place], [place] 0125411-22-2004 haemophilus influenzae type b vaccine, PRP-T conjugateLucero Zamora [address] [place], [place] 0125405-10-2004DTaP- hepatitis B and poliovirus vaccineElizasari Zamora [address] [place], [place] 0125405-10-2004 haemophilus influenzae type b vaccine, PRP-T conjugateLucero Zamora [address] [place], [place] 0125411-13-2003DTaP- hepatitis B and poliovirus vaccineElizasari Zamora [phone]-Snlut[address] [place], [place] 3054611-13-2003 haemophilus influenzae type b vaccine, PRP-T conjugateLucero Zamora [phone]-Hldtx[address] [place], [place] 3054608-11-2003DTaP- hepatitis B and poliovirus vaccineElizabechioma Zamora [phone]-Ivtox[address] [place], [place] 3054608-11-2003 haemophilus influenzae type b vaccine, PRP-T conjugateStefanyzasari Zamora [address] [place] [address] Primary [facility] Payers DatePayer CategoryPayerPolicy [id number]-pay2023Medicaid [id number] [id number] 2.16840.1.668034.3.579.2.593 [id number] 2.16840.1.903150.3.57[id number] 2.16840.1.947899.3.57[id number] 2.840.1.942272.3.57[id number] 2.840.1.173056.3.57[id number] 2.840.1.255504.3.57[id number] 2.840.1.766791.3.57[id number] 2.0.1.635515.3.57[id number] 2.840.1.571306.3.57[id number] 2.840.1.400370.3.57[id number] 2.840.1.276561.3.57[id number] 2.840.1.196046.3.57[id number] 2.840.1.377944.3.57[id number] 2.840.1.062948.3.57[id number] 2..840.1.032672.3.57[id number] 2.16.840.1.050341.3.579.2.922392-34-9401Jogywcz4860906854783-16-1119Kutndhp [id number] [id number] 2.840.1.076221.3.579.2.531 Social History DateTypeDetailFacilityStart: 75-03-3238Wlv [facility] At [facility] Hospitaltart: 41-30-5718Mli Assigned At CentervilleTobacco smoking statusAvita Health SystemTobaccoVape Tobacco Use:. Vaping, Ready to change: Yes. Household tobacco concerns: No. Yes [facility] Start: 42-65-2933Qzuqvxr smoking status NHISEx-smoker NOM[facility] HealthcareHistory of tobacco useCurrent smokerNOMS HealthcareHistory of tobacco useCigarette SmokerNOMS HealthcareStart: 07-28-2023 End: 58-52-3876Hovnlkpij beverage intakeLifetime non-drinker (finding)[facility] HealthcareStart: 57-43-5606Pwkvmvc of Social functionNOMS HealthcareStart: 63-66-0203Jxq assigned at birthNot on fileNOMS HealthcareStart: 01-17-2025 End: 67-99-0324Stgknmd smoking statusNever smoked tobacco (finding)[facility] CareStart: 24-03-8958Kdkxywf smoking statusFormer smokeless tobacco user, quit more than 30 days agoLima Memorial Hospital Primary CareSexFemale (finding)[facility] Hospitaltart: 08-16-2023 End: 63-74-8659Jhlstrkp to SARS-CoV-2 (event)[facility] Functional Status ZdeuBmptwxctdyOjprloHvxevwew38-06-1935Amzdqxngcy StatusN/[facility] Mwtt84-95-1878Oqsqikcbfw StatusN/[facility] Clinical Notes 10-13-2022 to 08-15-2025 Note Date & FlhrMiaeCtqroxsi19-94-1474 History of Present illness Narrative* Lian Chiang, [employer] - 08/15/2025 9:50 AM ESTAssociated Order(s): Insertion/Removal of Contraceptive Capsule Post-Procedure Diagnose(s): Insertion of Nexplanon; Encounter for other general counseling or advice on contraception Reason for Appointment: Patient ID: Nancie Fuentes is a 20 y.o. female who presents [...] disorder), recurrent episode, moderate (HCC) Vaginal delivery ([facility]) HISTORY PAST MEDICAL HISTORY SOCIAL HISTORY Past Medical History: Diagnosis Date BMI 29.0-29.9,adult Choroid plexus cyst Encounter for follow-up TOM (generalized anxiety disorder) Hordeolum externum of right eye, unspecified eyelid Insomnia MDD (major depressive disorder), recurrent episode, moderate (HCC) Vaginal delivery ([facility]) Social History Tobacco Use Smoking status: Former Types: Cigarettes Smokeless tobacco: Not on file Substance Use Topics Alcohol use: Never Drug use: Never FAMILY HISTORY No family history on file. SURGICAL HISTORY Past Surgical History: Procedure Laterality Date PA TONSILLECTOMY & ADENOIDECTOMY AGE 10/> 2018 T&A [...] nursing note reviewed. Exam conducted with a activities volunteer present. Vitals: Estimated body mass index is 22.67 kg/m as calculated from the following: Height as [...] of: Pj Kelley DO documented in this encounterSt. Louis VA Medical CenterCdbaptcylm89-46-5133 Hospital Discharge instructions Patient Education 03/14/2025 12:17:40 Budget-Friendly Healthy Eating Budget-Friendly Healthy Eating There are many ways to save money at the grocery store and continue to eat healthy. This can work if you: Make a grocery list and only buy food that is on the list. Plan meals that fit your budget. Make food yourself at home. What are tips for following this plan? Reading food labels Compare food labels between brand name and store brand foods. Often the nutritional value is the same, but the store brand is cheaper. Look for products that do not have added sugar, fat, or salt (sodium). These often cost the same but are healthier for you. Products may be labeled as: ?Sugar-free. ?Nonfat. ?Low-fat. ?Sodium-free. ?Low-sodium. Look for lean ground beef labeled as at least 93% lean and 7% fat. Prepare for shopping Make a grocery list and bring it to the store. If you have a mobile phone, you could use it to create your shopping list. Check store apps and online, and look in newspapers for weekly deals. Check for coupons, but use coupons only for foods and brands you normally buy. Do not buy items youwould not normally buy just because they are on sale. If possible, go to other stores to find the best prices. Consider shopping at [employer] stores, [employer] stores, local fruit and vegetable [employer], and [employer] markets. Shopping Buy only what is on your grocery list. Go only to the areas of the store that have the items on your list. Look at the unit prices on the shelf or vilchis tag. Use it to find out which items are the best deals. Do not shop when you are hungry. If you are hungry, it may be hard to stick to your list and budget. Look at the top and bottom shelves for deals. Foods at eye level (for both adults and children) usually cost more. Be efficient with your time when shopping. The more time you are at the store, the more money you will likely spend. What to look for when shopping Choose healthy items that are often low cost, such as carrots, potatoes, apples, bananas, and oranges. Dried or canned beans are a low-cost protein source. If you can, buy in bulk. Items you can buy in bulk include meats, fish, poultry, frozen fruits, andfrozen vegetables, herbs, spices, flour, pasta, nuts, and dried fruit. Try not to buy: ? Xljcj-ze-dmg foods, such as pre-cut fruits and vegetables and pre-made salads. ?Chips, cookies, and other junk food. These items are usually expensive and not healthy. ?Sodas and other sweetened drinks. Choose water instead. ?Fruits and vegetables that are out of season. Healthy in-season foods usually cost less. Buy a variety of vegetables and fruits by getting fresh, frozen, and canned items. To save money when getting more expensive foods like meats and dairy: ?Choose cheaper cuts of meat, such as bone-in chicken thighs and drumsticks, instead of skinless and boneless chicken. When you are ready to prepare the chicken, you can remove the skin to make it healthier. ?Choose lean meats like chicken or turkey instead of beef. ?Choose seafood canned in water, such as tuna, salmon, or sardines. ?Buy eggs as a lower-cost source of protein. ?Buy dried beans and peas, such as lentils, split peas, or kidney beans instead of meats. Dried beans and peas are other good sources of protein. ?Buy large tubs of yogurt instead of one-serving size. Cooking Make extra food and freeze the extra in meal-sized containers or in individual portions for fast meals and snacks. Pre-cook on days when you have extra time to prepare meals. You can keep these meals in the fridge or freezer and reheat for a quick meal. When you come home from the store, wash, peel, and cut up fruits and vegetables so they are ready to use and eat. This will help keep you from eating less healthy snacks and reduce food waste. Meal planning Do not eat out or get fast food. Make food at home. Plan meals and snacks using the grocery list and budget you create. Use leftovers in your meal plan for the week. Look for recipes where you can cook once and make enough food for many meals. Prepare budget-friendly types of meals like stews, casseroles, and stir-johnston dishes. Try some meatless meals or try no cook meals like salads. Make sure that half your plate is filled with fruits or vegetables. Choose from fresh, frozen, or canned fruits and vegetables. If eating canned, remember to rinse them before eating. This will remove any excess salt added for packaging. Where to find more information U.S. Department of Agriculture: myplate.gov This information is not intended to replace advice given to you by your health care provider. Make sure you discuss any questions you have with your health care provider. Document Revised: 10/23/2023 Document Reviewed: 07/07/2023 [employer] Patient Education 2023 [employer] [place]. 03/14/2025 12:17:26 Managing Depression, Adult Managing Depression, Adult Depression is a mental health condition that affects your thoughts, feelings, and actions. Being diagnosed with depression can bring you relief if you did not know why you have felt or behaved a certain way. It could also leave you feeling overwhelmed. Finding ways to manage your symptoms can help you feel more positive about your future. How to manage lifestyle changes Being depressed is difficult. Depression can increase the level of everyday stress. Stress can makedepression symptoms worse. You may believe your symptoms cannot be managed or will never improve. However, there are many things you can try to help manage your symptoms. There is hope. Managing stress Stress is your body's reaction to life changes and events, both good and bad. Stress can add to your feelings of depression. Learning to manage your stress can help lessen your feelings of depression. Try some of the following approaches to reducing your stress (stress reduction techniques): Listen to music that you enjoy and that inspires you. Try using a meditation darwin or take a meditation class. Develop a practice that helps you connect with your spiritual self. Walk in nature, pray, or go to a place of hinduism. Practice deep breathing. To do this, inhale slowly through your nose. Pause at the top of your inhale for a few seconds and then exhale slowly, letting yourself relax. Repeat this three or four times. Practice yoga to help relax and work your muscles. Choose a stress reduction technique that works for you. These techniques take time and practice to develop. Set aside 5 15 minutes a day to do them. Therapists can offer training in these techniques.Do these things to help manage stress: Keep a journal. Know your limits. Set healthy boundaries for yourself and others, such as saying no when you think something is too much. Pay attention to how you react to certain situations. You may not be able to control everything, but you can change your reaction. Add humor to your life by watching funny movies or shows. Make time for activities that you enjoy and that relax you. Spend less time using electronics, especially at night before bed. The light from screens can make your brain think it is time to get up rather than go to bed. Medicines Medicines, such as antidepressants, are often a part of treatment for depression. Talk with your pharmacist or health care provider about all the medicines, supplements, and herbal products that you take, their possible side effects, and what medicines and other products are safe to take together. Make sure to report any side effects you may have to your health care provider. Relationships Your health care provider may suggest family therapy, couples therapy, or individual therapy as part of your treatment. How to recognize changes Everyone responds differently to treatment for depression. As you recover from depression, you may start to: Have more interest in doing activities. Feel more hopeful. Have more energy. Eat a more regular amount of food. Have better mental focus. It is important to recognize if your depression is not getting better or is getting worse. The symptoms you had in the beginning may return, such as: Feeling tired. Eating too much or too little. Sleeping too much or too little. Feeling restless, agitated, or hopeless. Trouble focusing or making decisions. Having unexplained aches and pains. Feeling irritable, angry, or aggressive. If you or your family members notice these symptoms coming back, let your health care provider knowright away. Follow these instructions at home: Activity Try to get some form of exercise each day, such as walking. Try yoga, mindfulness, or other stress reduction techniques. Participate in group activities if you are able. Lifestyle Get enough sleep. Cut down on or stop using caffeine, tobacco, alcohol, and any other harmful substances. Eat a healthy diet that includes plenty of vegetables, fruits, whole grains, low-fat dairy products, and lean protein. Limit foods that are high in solid fats, added sugar, or salt (sodium). General instructions Take vlif-xdg-qgcqlij and prescription medicines only as told by your health care provider. Keep all follow-up visits. It is important for your health care provider to check on your mood, behavior, and medicines. Your health care provider may need to make changes to your treatment. Where to find support Talking to others Friends and family members can be sources of support and guidance. Talk to trusted friends or family members about your condition. Explain your symptoms and let them know that you are working with a health care provider to treat your depression. Tell friends and family how they can help. Finances Find mental health providers that fit with your financial situation. Talk with your health care provider if you are worried about access to food, housing, or medicine. Call your insurance company to learn about your co-pays and prescription plan. Where to find more information You can find support in your area from: Anxiety and Depression Association of [place] (ADAA): adaa.org Mental Health Eun: mentalhealthamerica.net National [place] on Mental Illness: estella.org Contact a health care provider if: You stop taking your antidepressant medicines, and you have any of these symptoms: ?Nausea. ?Headache. ?Light-headedness. ?Chills and body aches. ?Not being able to sleep (insomnia). You or your friends and family think your depression is getting worse. Get help right away if: You have thoughts of hurting yourself or others. Get help right away if you feel like you may hurt yourself or others, or have thoughts about takingyour own life. Go to your nearest emergency room or: Call 911. Call the National Suicide Prevention Lifeline at or 188. This is open 24 hours a day. Text the Crisis Text Line at 942601. This information is not intended to replace advice given to you by your health care provider. Make sure you discuss any questions you have with your health care provider. Document Revised: 02/04/2023 Document Reviewed: 02/04/2023 [employer] Patient Education 2023 [employer] 03/14/2025 12:17:15 Mindfulness-Based Stress Reduction Mindfulness-Based Stress Reduction Mindfulness-based stress reduction (MBSR) is a program that helps people learn to practice mindfulness. Mindfulness is the practice of consciously paying attention to the present moment. MBSR focuseson developing self-awareness, which lets you respond to life stress without judgment or negative feelings. It can be learned and practiced through techniques such as education, breathing exercises, meditation, and yoga. MBSR includes several mindfulness techniques in one program. MBSR works best when you understand the treatment, are willing to try new things, and can commit tospending time practicing what you learn. MBSR training may include learning about: How your feelings, thoughts, and reactions affect your body. New ways to respond to things that cause negative thoughts to start (triggers). How to notice your thoughts and let go of them. Practicing awareness of everyday things that you normally do without thinking. The techniques and goals of different types of meditation. What are the benefits of MBSR? MBSR can have many benefits, which include helping you to: Develop self-awareness. This means knowing and understanding yourself. Learn skills and attitudes that help you to take part in your own health care. Learn new ways to care for yourself. Be more accepting about how things are, and let things go. Be less judgmental and approach things with an open mind. Be patient with yourself and trust yourself more. MBSR has also been shown to: Reduce negative emotions, such as sadness, overwhelm, and worry. Improve memory and focus. Change how you sense and react to pain. Boost your body's ability to fight infections. Help you connect better with other people. Improve your sense of well-being. How to practice mindfulness To do a basic awareness exercise: Find a comfortable place to sit. Pay attention to the present moment. Notice your thoughts, feelings, and surroundings just as they are. Avoid judging yourself, your feelings, or your surroundings. Make note of any judgment that comes up and let it go. Your mind may wander, and that is okay. Make note of when your thoughts drift, and return your attention to the present moment. To do basic mindfulness meditation: Find a comfortable place to sit. This may include a stable chair or a firm floor cushion. ?Sit upright with your back straight. Let your arms fall next to your sides, with your hands resting on your legs. ?If you are sitting in a chair, rest your feet flat on the floor. ?If you are sitting on a cushion, cross your legs in front of you. Keep your head in a neutral position with your chin dropped slightly. Relax your jaw and rest the tip of your tongue on the roof of your mouth. Drop your gaze to the floor or close your eyes. Breathe normally and pay attention to your breath. Feel the air moving in and out of your nose. Feel your belly expanding and relaxing with each breath. Your mind may wander, and that is okay. Make note of when your thoughts drift, and return your attention to your breath. Avoid judging yourself, your feelings, or your surroundings. Make note of any judgment or feelings that come up, let them go, and bring your attention back to your breath. When you are ready, lift your gaze or open your eyes. Pay attention to how your body feels after the meditation. Follow these instructions at home: Find a local in-person or online MBSR program. Set aside some time regularly for mindfulness practice. Practice every day if you can. Even 10 minutes of practice is helpful. Find a mindfulness practice that works best for you. This may include one or more of the following: ?Meditation. This involves focusing your mind on a certain thought or activity. ?Breathing awareness exercises. These help you to stay present by focusing on your breath. ?Body scan. For this practice, you lie down and pay attention to each part of your body from head to toe. You can identify tension and soreness and consciously relax parts of your body. ?Yoga. Yoga involves stretching and breathing, and it can improve your ability to move and be flexible. It can also help you to test your body's limits, which can help you release stress. ?Mindful eating. This way of eating involves focusing on the taste, texture, color, and smell of each bite of food. This slows down eating and helps you feel full sooner. For this reason, it can be an important part of a weight loss plan. Find a podcast or recording that provides guidance for breathing awareness, body scan, or meditation exercises. You can listen to these any time when you have a free moment to rest without distractions. Follow your treatment plan as told by your health care provider. This may include taking regular medicines and making changes to your diet or lifestyle as recommended. Where to find more information You can find more information about MBSR from: Your health care provider. Community-based meditation centers or programs. Programs offered near you. Summary Mindfulness-based stress reduction (MBSR) is a program that teaches you how to consciously pay attention to the present moment. It is used to help you deal better with daily stress, feelings, and pain. MBSR focuses on developing self-awareness, which allows you to respond to life stress without judgment or negative feelings. MBSR programs may involve learning different mindfulness practices, such as breathing exercises, meditation, yoga, body scan, or mindful eating. Find a mindfulness practice that works best for you, and set aside time for it on a regular basis. This information is not intended to replace advice given to you by your health care provider. Make sure you discuss any questions you have with your health care provider. Document Revised: 05/09/2022 Document Reviewed: 05/09/2022 [employer] Patient Education 2023 [employer] [place]. Follow Up Care 03/02/2025 14:50:16 With:Mildred Wright Address: When:Within 1 Month(s) [facility] 06-02-2025 Evaluation + Plan note Future Scheduled Tests Laboratory* Comprehensive Metabolic Panel 03/14/25 * Lipid Panel 03/14/25 * Thyroid Stimulating Hormone 03/14/25 [facility] 06-02-2025 NotePatient Education Mental and Behavioral Health Managing Depression, Adult Depression is a mental health condition that affects your thoughts, feelings, and actions. Being diagnosed with depression can bring you relief if you did not know why you have felt or behaved a certain way. It could also leave you feeling overwhelmed. Finding ways to manage your symptoms can help you feel more positive about your future. How to manage lifestyle changes Being depressed is difficult. Depression can increase the level of everyday stress. Stress can makedepression symptoms worse. You may believe your symptoms cannot be managed or will never improve. However, there are many things you can try to help manage your symptoms. There is hope. Managing stress Stress is your body's reaction to life changes and events, both good and bad. Stress can add to your feelings of depression. Learning to manage your stress can help lessen your feelings of depression. Try some of the following approaches to reducing your stress (stress reduction techniques): ??? Listen to music that you enjoy and that inspires you. ??? Try using a meditation darwin or take a meditation class. ??? Develop a practice that helps you connect with your spiritual self. Walk in nature, pray, or goto a place of hinduism. ??? Practice deep breathing. To do this, inhale slowly through your nose. Pause at the top of your inhale for a few seconds and then exhale slowly, letting yourself relax. Repeat this three or four times. ??? Practice yoga to help relax and work your muscles. Choose a stress reduction technique that works for you. These techniques take time and practice to develop. Set aside 5?15 minutes a day to do them. Therapists can offer training in these techniques.Do these things to help manage stress: ??? Keep a journal. ??? Know your limits. Set healthy boundaries for yourself and others, such as saying no when you think something is too much. ??? Pay attention to how you react to certain situations. You may not be able to control everything, but you can change your reaction. ??? Add humor to your life by watching funny movies or shows. ??? Make time for activities that you enjoy and that relax you. ??? Spend less time using electronics, especially at night before bed. The light from screens can make your brain think it is time to get up rather than go to bed. Medicines Medicines, such as antidepressants, are often a part of treatment for depression. ??? Talk with your pharmacist or health care provider about all the medicines, supplements, and herbal products that you take, their possible side effects, and what medicines and other products are safe to take together. ??? Make sure to report any side effects you may have to your health care provider. Relationships Your health care provider may suggest family therapy, couples therapy, or individual therapy as part of your treatment. How to recognize changes Everyone responds differently to treatment for depression. As you recover from depression, you may start to: ??? Have more interest in doing activities. ??? Feel more hopeful. ??? Have more energy. ??? Eat a more regular amount of food. ??? Have better mental focus. It is important to recognize if your depression is not getting better or is getting worse. The symptoms you had in the beginning may return, such as: ??? Feeling tired. ??? Eating too much or too little. ??? Sleeping too much or too little. ??? Feeling restless, agitated, or hopeless. ??? Trouble focusing or making decisions. ??? Having unexplained aches and pains. ??? Feeling irritable, angry, or aggressive. If you or your family members notice these symptoms coming back, let your health care provider knowright away. Follow these instructions at home: Activity ??? Try to get some form of exercise each day, such as walking. ??? Try yoga, mindfulness, or other stress reduction techniques. ??? Participate in group activities if you are able. Lifestyle ??? Get enough sleep. ??? Cut down on or stop using caffeine, tobacco, alcohol, and any other harmful substances. ??? Eat a healthy diet that includes plenty of vegetables, fruits, whole grains, low-fat dairy products, and lean protein. Limit foods that are high in solid fats, added sugar, or salt (sodium). General instructions ??? Take gkxb-gqx-zyosbcy and prescription medicines only as told by your health care provider. ??? Keep all follow-up visits. It is important for your health care provider to check on your mood,behavior, and medicines. Your health care provider may need to make changes to your treatment. Where to find support Talking to others Friends and family members can be sources of support and guidance. Talk to trusted friends or family members about your condition. Explain your symptoms and let them know that you are working with a health care (more content not included)...[facility]04-07-2025 NotePatient Education Mental and Behavioral Health Managing Depression, Adult Depression is a mental health condition that affects your thoughts, feelings, and actions. Being diagnosed with depression can bring you relief if you did not know why you have felt or behaved a certain way. It could also leave you feeling overwhelmed. Finding ways to manage your symptoms can help you feel more positive about your future. How to manage lifestyle changes Being depressed is difficult. Depression can increase the level of everyday stress. Stress can makedepression symptoms worse. You may believe your symptoms cannot be managed or will never improve. However, there are many things you can try to help manage your symptoms. There is hope. Managing stress Stress is your body's reaction to life changes and events, both good and bad. Stress can add to your feelings of depression. Learning to manage your stress can help lessen your feelings of depression. Try some of the following approaches to reducing your stress (stress reduction techniques): ??? Listen to music that you enjoy and that inspires you. ??? Try using a meditation darwin or take a meditation class. ??? Develop a practice that helps you connect with your spiritual self. Walk in nature, pray, or goto a place of hinduism. ??? Practice deep breathing. To do this, inhale slowly through your nose. Pause at the top of your inhale for a few seconds and then exhale slowly, letting yourself relax. Repeat this three or four times. ??? Practice yoga to help relax and work your muscles. Choose a stress reduction technique that works for you. These techniques take time and practice to develop. Set aside 5?15 minutes a day to do them. Therapists can offer training in these techniques.Do these things to help manage stress: ??? Keep a journal. ??? Know your limits. Set healthy boundaries for yourself and others, such as saying no when you think something is too much. ??? Pay attention to how you react to certain situations. You may not be able to control everything, but you can change your reaction. ??? Add humor to your life by watching funny movies or shows. ??? Make time for activities that you enjoy and that relax you. ??? Spend less time using electronics, especially at night before bed. The light from screens can make your brain think it is time to get up rather than go to bed. Medicines Medicines, such as antidepressants, are often a part of treatment for depression. ??? Talk with your pharmacist or health care provider about all the medicines, supplements, and herbal products that you take, their possible side effects, and what medicines and other products are safe to take together. ??? Make sure to report any side effects you may have to your health care provider. Relationships Your health care provider may suggest family therapy, couples therapy, or individual therapy as part of your treatment. How to recognize changes Everyone responds differently to treatment for depression. As you recover from depression, you may start to: ??? Have more interest in doing activities. ??? Feel more hopeful. ??? Have more energy. ??? Eat a more regular amount of food. ??? Have better mental focus. It is important to recognize if your depression is not getting better or is getting worse. The symptoms you had in the beginning may return, such as: ??? Feeling tired. ??? Eating too much or too little. ??? Sleeping too much or too little. ??? Feeling restless, agitated, or hopeless. ??? Trouble focusing or making decisions. ??? Having unexplained aches and pains. ??? Feeling irritable, angry, or aggressive. If you or your family members notice these symptoms coming back, let your health care provider knowright away. Follow these instructions at home: Activity ??? Try to get some form of exercise each day, such as walking. ??? Try yoga, mindfulness, or other stress reduction techniques. ??? Participate in group activities if you are able. Lifestyle ??? Get enough sleep. ??? Cut down on or stop using caffeine, tobacco, alcohol, and any other harmful substances. ??? Eat a healthy diet that includes plenty of vegetables, fruits, whole grains, low-fat dairy products, and lean protein. Limit foods that are high in solid fats, added sugar, or salt (sodium). General instructions ??? Take yqeu-cxh-atfqmps and prescription medicines only as told by your health care provider. ??? Keep all follow-up visits. It is important for your health care provider to check on your mood,behavior, and medicines. Your health care provider may need to make changes to your treatment. Where to find support Talking to others Friends and family members can be sources of support and guidance. Talk to trusted friends or family members about your condition. Explain your symptoms and let them know that you are working with a health care (more content not included)...[facility]01-06-2025 History of Present illness Narrative* Lian Chiang LPN - 10/18/2024 2:30 PM ESTAssociated Order(s): Insertion/Removal of Contraceptive Capsule Post-Procedure Diagnose(s): Nexplanon removal Reason for Appointment: Patient ID: Nancie Fuentes is a 19 y.o. female who presents for Contraception (Nexplanon Removal) Patient presents today for a Nexplanon Removal appointment. MEDICATIONS No current outpatient medications ALLERGIES Allergies Allergen Reactions Cyclobenzaprine Unknown SURGICAL HISTORY Past Surgical History: Procedure Laterality Date PA TONSILLECTOMY & ADENOIDECTOMY AGE 10/> 2018 T&A REVIEW OF SYSTEMS Review of Systems: Review of Systems All other systems reviewed and are negative. OBJECTIVE Objective: Physical Exam Constitutional: Appearance: Normal [...] nursing note reviewed. Exam conducted with a activities volunteer present. Vitals: Estimated body mass index is 26.26 kg/m as calculated from the following: Height as of 10/30/22: 5' 5 . Weight as of this encounter: 157 lb 12.8 oz. BP: 100/64 No LMP recorded. ASSESSMENT & PLAN Assessment/Plan Encounter Diagnosis: ICD-10-CM 1. Nexplanon removal Z30.46 Insertion/Removal of Contraceptive Capsule Date/Time: 10/18/2024 3:24 PM Performed by: Pj Kelley DO Authorized by: Pj Kelley DO Consent: Consent obtained: Written Consent given by: Patient Patient questions answered: yes Patient agrees, verbalizes understanding, and wants to proceed: yes Educational handouts given: no Instructions and paperwork completed: no Indication: Indication: Presence of non-biodegradable drug delivery implant Pre-procedure: Pre-procedure timeout performed: yes Prepped with: povidone-iodine Local anesthetic: Lidocaine without epinephrine Procedure: Procedure: Removal Small stab incision was made in arm: yes Left/right: Left Preloaded contraceptive capsule trocar was placed subdermally: no Visualization of implant was obtained: no Contraceptive capsule was inserted and trocar removed: no Visualization of notch in stylet and palpation of device: no Palpation confirms placement by provider and patient: no Site was closed with steri-strips and pressure bandage applied: no Comments: Removal of Nexplanon insertion Nexplanon Removal: Patient presents today for removal of Nexplanon. Written consent for procedure was obtained and patient was placed in supine position with left arm flexed at elbow. Skin was cleansed with alcohol/Betadine and 2cc of Lidocaine was injected underneath palpated Nexplanon at distal end. After allowing for sufficient time for numbing agent to take effect, the skin overlying the end of Nexplanon was incised with an 11inch blade scalpel. A 7.5in hemostat was inserted in the incision site to grab device and Nexplanon was released from tissue. Nexplanon implant was removed in its entirety and visualized by myself and patient. The skin was cleansed with alcohol and the incision was covered with gauze. Post- procedure care was reviewed and patient will continue with proposed plan of care. Patient wasadvised to call office with any questions or concerns. Patient desires to conceive in the near future. Follow Up: Patient is to return to the office as needed for any routine appointments. Documented by Lian Chiang LPN on behalf of: Pj Kelley DO documented in this encounterSt. [facility] [id number] Hospital Discharge instructions Patient Education 08/26/2024 11:04:18 Mindfulness-Based Stress Reduction Mindfulness-Based Stress Reduction Mindfulness-based stress reduction (MBSR) is a program that helps people learn to practice mindfulness. Mindfulness is the practice of consciously paying attention to the present moment. MBSR focuseson developing self-awareness, which lets you respond to life stress without judgment or negative feelings. It can be learned and practiced through techniques such as education, breathing exercises, meditation, and yoga. MBSR includes several mindfulness techniques in one program. MBSR works best when you understand the treatment, are willing to try new things, and can commit tospending time practicing what you learn. MBSR training may include learning about: How your feelings, thoughts, and reactions affect your body. New ways to respond to things that cause negative thoughts to start (triggers). How to notice your thoughts and let go of them. Practicing awareness of everyday things that you normally do without thinking. The techniques and goals of different types of meditation. What are the benefits of MBSR? MBSR can have many benefits, which include helping you to: Develop self-awareness. This means knowing and understanding yourself. Learn skills and attitudes that help you to take part in your own health care. Learn new ways to care for yourself. Be more accepting about how things are, and let things go. Be less judgmental and approach things with an open mind. Be patient with yourself and trust yourself more. MBSR has also been shown to: Reduce negative emotions, such as sadness, overwhelm, and worry. Improve memory and focus. Change how you sense and react to pain. Boost your body's ability to fight infections. Help you connect better with other people. Improve your sense of well-being. How to practice mindfulness To do a basic awareness exercise: Find a comfortable place to sit. Pay attention to the present moment. Notice your thoughts, feelings, and surroundings just as they are. Avoid judging yourself, your feelings, or your surroundings. Make note of any judgment that comes up and let it go. Your mind may wander, and that is okay. Make note of when your thoughts drift, and return your attention to the present moment. To do basic mindfulness meditation: Find a comfortable place to sit. This may include a stable chair or a firm floor cushion. ?Sit upright with your back straight. Let your arms fall next to your sides, with your hands resting on your legs. ?If you are sitting in a chair, rest your feet flat on the floor. ?If you are sitting on a cushion, cross your legs in front of you. Keep your head in a neutral position with your chin dropped slightly. Relax your jaw and rest the tip of your tongue on the roof of your mouth. Drop your gaze to the floor or close your eyes. Breathe normally and pay attention to your breath. Feel the air moving in and out of your nose. Feel your belly expanding and relaxing with each breath. Your mind may wander, and that is okay. Make note of when your thoughts drift, and return your attention to your breath. Avoid judging yourself, your feelings, or your surroundings. Make note of any judgment or feelings that come up, let them go, and bring your attention back to your breath. When you are ready, lift your gaze or open your eyes. Pay attention to how your body feels after the meditation. Follow these instructions at home: Find a local in-person or online MBSR program. Set aside some time regularly for mindfulness practice. Practice every day if you can. Even 10 minutes of practice is helpful. Find a mindfulness practice that works best for you. This may include one or more of the following: ?Meditation. This involves focusing your mind on a certain thought or activity. ?Breathing awareness exercises. These help you to stay present by focusing on your breath. ?Body scan. For this practice, you lie down and pay attention to each part of your body from head to toe. You can identify tension and soreness and consciously relax parts of your body. ?Yoga. Yoga involves stretching and breathing, and it can improve your ability to move and be flexible. It can also help you to test your body's limits, which can help you release stress. ?Mindful eating. This way of eating involves focusing on the taste, texture, color, and smell of each bite of food. This slows down eating and helps you feel full sooner. For this reason, it can be an important part of a weight loss plan. Find a podcast or recording that provides guidance for breathing awareness, body scan, or meditation exercises. You can listen to these any time when you have a free moment to rest without distractions. Follow your treatment plan as told by your health care provider. This may include taking regular medicines and making changes to your diet or lifestyle as recommended. Where to find more information You can find more information about MBSR from: Your health care provider. Community-based meditation centers or programs. Programs offered near you. Summary Mindfulness-based stress reduction (MBSR) is a program that teaches you how to consciously pay attention to the present moment. It is used to help you deal better with daily stress, feelings, and pain. MBSR focuses on developing self-awareness, which allows you to respond to life stress without judgment or negative feelings. MBSR programs may involve learning different mindfulness practices, such as breathing exercises, meditation, yoga, body scan, or mindful eating. Find a mindfulness practice that works best for you, and set aside time for it on a regular basis. This information is not intended to replace advice given to you by your health care provider. Make sure you discuss any questions you have with your health care provider. Document Revised: 05/09/2022 Document Reviewed: 05/09/2022 [employer] Patient Education 2023 [employer]. 08/26/2024 11:04:15 Palpitations, Wngo-gk-Phaw Palpitations Palpitations are feelings that your heartbeat is not normal. Your heartbeat may feel like it is: Uneven (irregular). Faster than normal. Fluttering. Skipping a beat. This is usually not a serious problem. However, a doctor will do tests and check your medical history to make sure that you do not have a serious heart problem. Follow these instructions at home: Watch for any changes in your condition. Tell your doctor about any changes. Take these actions to help manage your symptoms: Eating and drinking Follow instructions from your doctor about things to eat and drink. You may be told to avoid these things: Drinks that have caffeine in them, such as coffee, tea, soft drinks, and energy drinks. Chocolate. Alcohol. Diet pills. Lifestyle Try to lower your stress. These things can help you relax: ?Yoga. ?Deep breathing and meditation. ?Guided imagery. This is using words and images to create positive thoughts. ?Exercise, including swimming, jogging, and walking. Tell your doctor if you have more abnormal heartbeats when you are active. If you have chest pain or feel short of breath with exercise, do not keep doing the exercise until you are seen by your doctor. ?Biofeedback. This is using your mind to control things in your body, such as your heartbeat. Get plenty of rest and sleep. Keep a regular bed time. Do not use drugs, such as cocaine or ecstasy. Do not use marijuana. Do not smoke or use any products that contain nicotine or tobacco. If you need help quitting, ask your doctor. General instructions Take isuu-zxd-zhabisn and prescription medicines only as told by your doctor. Keep all follow-up visits. You may need more tests if palpitations do not go away or get worse. Contact a doctor if: You keep having fast or uneven heartbeats for a long time. Your symptoms happen more often. Get help right away if: You have chest pain. You feel short of breath. You have a very bad headache. You feel dizzy. You faint. These symptoms may be an emergency. Get help right away. Call your local emergency services (911 int [place] Do not wait to see if the symptoms will go away. Do not drive yourself to the hospital. Summary Palpitations are feelings that your heartbeat is uneven or faster than normal. It may feel like your heart is fluttering or skipping a beat. Avoid food and drinks that may cause this condition. These include caffeine, chocolate, and alcohol. Try to lower your stress. Do not smoke or use drugs. Get help right away if you faint, feel dizzy, feel short of breath, have chest pain, or have a verybad headache. This information is not intended to replace advice given to you by your health care provider. Make sure you discuss any questions you have with your health care provider. Document Revised: 02/20/2022 Document Reviewed: 02/20/2022 [employer] Patient Education 2023 [employer] [place]. 08/26/2024 11:04:10 Health Maintenance, Female Health Maintenance, Female Adopting a healthy lifestyle and getting preventive care are important in promoting health and wellness. Ask your health care provider about: The right schedule for you to have regular tests and exams. Things you can do on your own to prevent diseases and keep yourself healthy. What should I know about diet, weight, and exercise? Eat a healthy diet Eat a diet that includes plenty of vegetables, fruits, low-fat dairy products, and lean protein. Do not eat a lot of foods that are high in solid fats, added sugars, or sodium. Maintain a healthy weight Body mass index (BMI) is used to identify weight problems. It estimates body fat based on height and weight. Your health care provider can help determine your BMI and help you achieve or maintain a healthy weight. Get regular exercise Get regular exercise. This is one of the most important things you can do for your health. Most adults should: Exercise for at least 150 minutes each week. The exercise should increase your heart rate and make you sweat (moderate-intensity exercise). Do strengthening exercises at least twice a week. This is in addition to the moderate-intensity exercise. Spend less time sitting. Even light physical activity can be beneficial. Watch cholesterol and blood lipids Have your blood tested for lipids and cholesterol at 20 years of age, then have this test every 5 years. Have your cholesterol levels checked more often if: Your lipid or cholesterol levels are high. You are older than 40 years of age. You are at high risk for heart disease. What should I know about cancer screening? Depending on your health history and family history, you may need to have cancer screening at various ages. This may include screening for: Breast cancer. Cervical cancer. Colorectal cancer. Skin cancer. Lung cancer. What should I know about heart disease, diabetes, and high blood pressure? Blood pressure and heart disease High blood pressure causes heart disease and increases the risk of stroke. This is more likely to develop in people who have high blood pressure readings or are overweight. Have your blood pressure checked: ?Every 3 5 years if you are 18 39 years of age. ?Every year if you are 40 years old or older. Diabetes Have regular diabetes screenings. This checks your fasting blood sugar level. Have the screening done: Once every three years after age 40 if you are at a normal weight and have a low risk for diabetes. More often and at a younger age if you are overweight or have a high risk for diabetes. What should I know about preventing infection? Hepatitis B If you have a higher risk for hepatitis B, you should be screened for this virus. Talk with your health care provider to find out if you are at risk for hepatitis B infection. Hepatitis C Testing is recommended for: Everyone born from 1947 through 1967. Anyone with known risk factors for hepatitis C. Sexually transmitted infections (STIs) Get screened for STIs, including gonorrhea and chlamydia, if: ?You are sexually active and are younger than 24 years of age. ?You are older than 24 years of age and your health care provider tells you that you are at risk for this type of infection. ?Your sexual activity has changed since you were last screened, and you are at increased risk for chlamydia or gonorrhea. Ask your health care provider if you are at risk. Ask your health care provider about whether you are at high risk for HIV. Your health care providermay recommend a prescription medicine to help prevent HIV infection. If you choose to take medicineto prevent HIV, you should first get tested for HIV. You should then be tested every 3 months for as long as you are taking the medicine. If you are about to stop having your period (premenopausal) and you may become , seek counseling before you get . Take 400 to 800 micrograms (mcg) of folic acid every day if you become . Ask for control (contraception) if you want to prevent . Osteoporosis and menopause Osteoporosis is a disease in which the bones lose minerals and strength with aging. This can resultin bone fractures. If you are 65 years old or older, or if you are at risk for osteoporosis and fractures, ask your health care provider if you should: Be screened for bone loss. Take a calcium or vitamin D supplement to lower your risk of fractures. Be given hormone replacement therapy (HRT) to treat symptoms of menopause. Follow these instructions at home: Alcohol use Do not drink alcohol if: ?Your health care provider tells you not to drink. ?You are , may be , or are planning to become . If you drink alcohol: ?Limit how much you have to: ?0 1 drink a day. ?Know how much alcohol is in your drink. In the [place] one drink equals one 12 oz bottle of beer (355 mL), one 5 oz glass of wine (148 mL), or one 1 oz glass of hard liquor (44 mL). Lifestyle Do not use any products that contain nicotine or tobacco. These products include cigarettes, chewing tobacco, and vaping devices, such as e-cigarettes. If you need help quitting, ask your health careprovider. Do not use street drugs. Do not share needles. Ask your health care provider for help if you need support or information about quitting drugs. General instructions Schedule regular health, dental, and eye exams. Stay current with your vaccines. Tell your health care provider if: ?You often feel depressed. ?You have ever been abused or do not feel safe at home. Summary Adopting a healthy lifestyle and getting preventive care are important in promoting health and wellness. Follow your health care provider's instructions about healthy diet, exercising, and getting tested or screened for diseases. Follow your health care provider's instructions on monitoring your cholesterol and blood pressure. This information is not intended to replace advice given to you by your health care provider. Make sure you discuss any questions you have with your health care provider. Document Revised: 02/18/2022 Document Reviewed: 02/18/2022 [employer] Patient Education 2023 [employer] [place]. Follow Up Care 08/25/2024 10:38:14 With:Mildred Wright Address: When:Within 3 Month(s) [facility] 11-14-2024 NotePatient Education Emergency Medicine Palpitations Palpitations are feelings that your heartbeat is not normal. Your heartbeat may feel like it is: ??? Uneven (irregular). ??? Faster than normal. ??? Fluttering. ??? Skipping a beat. This is usually not a serious problem. However, a doctor will do tests and check your medical history to make sure that you do not have a serious heart problem. Follow these instructions at home: Watch for any changes in your condition. Tell your doctor about any changes. Take these actions to help manage your symptoms: Eating and drinking Follow instructions from your doctor about things to eat and drink. You may be told to avoid these things: ??? Drinks that have caffeine in them, such as coffee, tea, soft drinks, and energy drinks. ??? Chocolate. ??? Alcohol. ??? Diet pills. Lifestyle ??? Try to lower your stress. These things can help you relax: ? Yoga. ? Deep breathing and meditation. ? Guided imagery. This is using words and images to create positive thoughts. ? Exercise, including swimming, jogging, and walking. Tell your doctor if you have more abnormal heartbeats when you are active. If you have chest pain or feel short of breath with exercise, do not keep doing the exercise until you are seen by your doctor. ? Biofeedback. This is using your mind to control things in your body, such as your heartbeat. ??? Get plenty of rest and sleep. Keep a regular bed time. ??? Do not use drugs, such as cocaine or ecstasy. Do not use marijuana. ??? Do not smoke or use any products that contain nicotine or tobacco. If you need help quitting, ask your doctor. General instructions ??? Take gybj-std-dxiacqn and prescription medicines only as told by your doctor. ??? Keep all follow-up visits. You may need more tests if palpitations do not go away or get worse. Contact a doctor if: ??? You keep having fast or uneven heartbeats for a long time. ??? Your symptoms happen more often. Get help right away if: ??? You have chest pain. ??? You feel short of breath. ??? You have a very bad headache. ??? You feel dizzy. ??? You faint. These symptoms may be an emergency. Get help right away. Call your local emergency services (911 int [place] ??? Do not wait to see if the symptoms will go away. ??? Do not drive yourself to the hospital. Summary ??? Palpitations are feelings that your heartbeat is uneven or faster than normal. It may feel likeyour heart is fluttering or skipping a beat. ??? Avoid food and drinks that may cause this condition. These include caffeine, chocolate, and alcohol. ??? Try to lower your stress. Do not smoke or use drugs. ??? Get help right away if you faint, feel dizzy, feel short of breath, have chest pain, or have a very bad headache. This information is not intended to replace advice given to you by your health care provider. Make sure you discuss any questions you have with your health care provider. Document Revised: 02/20/2022 Document Reviewed: 02/20/2022 Elsevier Patient Education ? 2023 [employer] Mental and Behavioral Health Mindfulness-Based Stress Reduction Mindfulness-based stress reduction (MBSR) is a program that helps people learn to practice mindfulness. Mindfulness is the practice of consciously paying attention to the present moment. MBSR focuseson developing self-awareness, which lets you respond to life stress without judgment or negative feelings. It can be learned and practiced through techniques such as education, breathing exercises, meditation, and yoga. MBSR includes several mindfulness techniques in one program. MBSR works best when you understand the treatment, are willing to try new things, and can commit tospending time practicing what you learn. MBSR training may include learning about: ??? How your feelings, thoughts, and reactions affect your body. ??? New ways to respond to things that cause negative thoughts to start (triggers). ??? How to notice your thoughts and let go of them. ??? Practicing awareness of everyday things that you normally do without thinking. ??? The techniques and goals of different types of meditation. What are the benefits of MBSR? MBSR can have many benefits, which include helping you to: ??? Develop self-awareness. This means knowing and understanding yourself. ??? Learn skills and attitudes that help you to take part in your own health care. ??? Learn new ways to care for yourself. ??? Be more accepting about how things are, and let things go. ??? Be less judgmental and approach things with an open mind. ??? Be patient with yourself and trust yourself more. MBSR has also been shown to: ??? Reduce negative emotions, such as sadness, overwhelm, and worry. ??? Improve memory and focus. ??? Change how you sense and react to pain. ??? Boost your body's ability to fight infections. ??? Help you connec (more content not included)...[facility] 01-19-2024 Hospital Discharge instructions Patient Education 01/19/2024 17:56:48 Nausea and Vomiting, Adult Nausea and Vomiting, Adult Nausea is the feeling that you have an upset stomach or that you are about to vomit. As nausea getsworse, it can lead to vomiting. Vomiting is when stomach contents forcefully come out of your mouthas a result of nausea. Vomiting can make you feel weak and cause you to become dehydrated. Dehydration can make you feel tired and thirsty, cause you to have a dry mouth, and decrease how often you urinate. Older adults and people with other diseases or a weak disease-fighting system (immune system) are at higher risk for dehydration. It is important to treat your nausea and vomiting as told by your health care provider. Follow these instructions at home: Watch your symptoms for any changes. Tell your health care provider about them. Eating and drinking Take an oral rehydration solution (ORS). This is a drink that is sold at pharmacies and retail stores. Drink clear fluids slowly and in small amounts as you are able. Clear fluids include water, ice chips, low-calorie sports drinks, and fruit juice that has water added (diluted fruit juice). Eat bland, xbpc-nt-uroywz foods in small amounts as you are able. These foods include bananas, applesauce, rice, lean meats, toast, and crackers. Avoid fluids that contain a lot of sugar or caffeine, such as energy drinks, sports drinks, and soda. Avoid alcohol. Avoid spicy or fatty foods. General instructions Take xezv-bta-hwlhcuz and prescription medicines only as told by your health care provider. Drink enough fluid to keep your urine pale yellow. Wash your hands often using soap and water for at least 20 seconds. If soap and water are not available, use hand big data hadoop developer. Make sure that everyone in your household washes their hands well and often. Rest at home while you recover. Watch your condition for any changes. Take slow and deep breaths when you feel nauseous. Keep all follow-up visits. This is important. Contact a health care provider if: Your symptoms get worse. You have new symptoms. You have a fever. You cannot drink fluids without vomiting. Your nausea does not go away after 2 days. You feel light-headed or dizzy. You have a headache. You have muscle cramps. You have a rash. You have pain while urinating. Get help right away if: You have pain in your chest, neck, arm, or jaw. You feel extremely weak or you faint. You have persistent vomiting. You have vomit that is bright red or looks like black coffee grounds. You have bloody or black stools (feces) or stools that look like tar. You have a severe headache, a stiff neck, or both. You have severe pain, cramping, or bloating in your abdomen. You have difficulty breathing, or you are breathing very quickly. Your heart is beating very quickly. Your skin feels cold and clammy. You feel confused. You have signs of dehydration, such as: ?Dark urine, very little urine, or no urine. ?Cracked lips. ?Dry mouth. ?Sunken eyes. ?Sleepiness. ?Weakness. These symptoms may be an emergency. Get help right away. Call 911. Do not wait to see if the symptoms will go away. Do not drive yourself to the hospital. Summary Nausea is the feeling that you have an upset stomach or that you are about to vomit. As nausea getsworse, it can lead to vomiting. Vomiting can make you feel weak and cause you to become dehydrated. Follow instructions from your health care provider about eating and drinking to prevent dehydration. Take uxmh-rhh-rewfepb and prescription medicines only as told by your health care provider. Contact your health care provider if your symptoms get worse, or you have new symptoms. Keep all follow-up visits. This is important. This information is not intended to replace advice given to you by your health care provider. Make sure you discuss any questions you have with your health care provider. Document Revised: 04/05/2022 Document Reviewed: 04/05/2022 [employer] Patient Education 2022 [employer] [place]. 01/19/2024 17:56:48 Diarrhea, Adult Diarrhea, Adult Diarrhea is frequent loose and watery bowel movements. Diarrhea can make you feel weak and cause you to become dehydrated. Dehydration can make you tired and thirsty, cause you to have a dry mouth, and decrease how often you urinate. Diarrhea typically lasts 2 3 days. However, it can last longer if it is a sign of something more serious. It is important to treat your diarrhea as told by your health care provider. Follow these instructions at home: Eating and drinking Follow these recommendations as told by your health care provider: Take an oral rehydration solution (ORS). This is an ehoe-mui-vrmwknt medicine that helps return your body to its normal balance of nutrients and water. It is found at pharmacies and retail stores. Drink plenty of fluids, such as water, ice chips, diluted fruit juice, and low- calorie sports drinks. You can drink milk also, if desired. Avoid drinking fluids that contain a lot of sugar or caffeine, such as energy drinks, sports drinks, and soda. Eat bland, uiih-tz-uwozib foods in small amounts as you are able. These foods include bananas, applesauce, rice, lean meats, toast, and crackers. Avoid alcohol. Avoid spicy or fatty foods. Medicines Take elzy-erg-htbjqti and prescription medicines only as told by your health care provider. If you were prescribed an antibiotic medicine, take it as told by your health care provider. Do notstop using the antibiotic even if you start to feel better. General instructions Wash your hands often using soap and water. If soap and water are not available, use a hand big data hadoop developer. Others in the household should wash their hands as well. Hands should be washed: ?After using the toilet or changing a diaper. ?Before preparing, cooking, or serving food. ?While caring for a sick person or while visiting someone in a hospital. Drink enough fluid to keep your urine pale yellow. Rest at home while you recover. Watch your condition for any changes. Take a warm bath to relieve any burning or pain from frequent diarrhea episodes. Keep all follow-up visits as told by your health care provider. This is important. Contact a health care provider if: You have a fever. Your diarrhea gets worse. You have new symptoms. You cannot keep fluids down. You feel light-headed or dizzy. You have a headache. You have muscle cramps. Get help right away if: You have chest pain. You feel extremely weak or you faint. You have bloody or black stools or stools that look like tar. You have severe pain, cramping, or bloating in your abdomen. You have trouble breathing or you are breathing very quickly. Your heart is beating very quickly. Your skin feels cold and clammy. You feel confused. You have signs of dehydration, such as: ?Dark urine, very little urine, or no urine. ?Cracked lips. ?Dry mouth. ?Sunken eyes. ?Sleepiness. ?Weakness. Summary Diarrhea is frequent loose and sometimes watery bowel movements. Diarrhea can make you feel weak and cause you to become dehydrated. Drink enough fluids to keep your urine pale yellow. Make sure that you wash your hands after using the toilet. If soap and water are not available, usehand big data hadoop developer. Contact a health care provider if your diarrhea gets worse or you have new symptoms. Get help right away if you have signs of dehydration. This information is not intended to replace advice given to you by your health care provider. Make sure you discuss any questions you have with your health care provider. Document Revised: 12/20/2022 Document Reviewed: 04/10/2022 [employer] Patient Education 2022 [employer] [place]. Follow Up Care 01/19/2024 13:12:14 With:YAKOV RODRIGES Address: [address] [place] [address] Business (1) When:01/22/2024 17:42:23 Comments:Return to the emergency room if your vomiting recurs, fever, abdominal pain recurs or any new symptoms [facility]04-08-2024 Evaluation + Plan noteExtracted from: Title:ED NoteAuthor:Estrellita Chester M.D. HDate:01/19/24 1. Vomiting and diarrhea (R1 1.10: Vomiting, unspecified) Diarrhea, unspecified (R19.7: Diarrhea, unspecified) Orders: famotidine, 20 mg = 2 mL, Soln-IV, IV Push, Once, Stop date 01/19/24 13:26:00 EDT, STAT, Start date01/19/24 13:26:00 EDT, 01/19/24 13:26:00 EDT ondansetron, 4 mg = 1 tab(s), Oral, q6hr, PRN Nausea/Vomiting, # 12 tab(s), Refills(s) 0, Pharmacy:[id number], 165, cm, 01/19/24 13:19:00 EDT, Height/Length Dosing, 71.1, kg, 01/19/24 13:19:00 EDT, Weight Dosing ondansetron, 4 mg = 2 mL, Injection, IV Push, Once, Stop date 01/19/24 16:04:00 EDT, STAT, Start date 01/19/24 16:04:00 EDT, 01/19/24 16:04:00 EDT ondansetron, 4 mg = 2 mL, Injection, IV Push, Once, Stop date 01/19/24 16:40:00 EDT, STAT, Start date 01/19/24 16:40:00 EDT, 01/19/24 16:40:00 EDT promethazine 25 mg + Sodium Chloride 0.9% intravenous solution 50 mL, Injection, IV Piggyback, Once, Stop date 01/19/24 13:26:00 EDT, STAT, Start date 01/19/24 13:26:00 EDT, 153 mL/hr, Infuse over 20minute(s) Sodium Chloride 0.9% intravenous solution, 2,000 mL, Soln-IV, IV, Once, Stop date 01/19/24 13:26:00EDT, STAT, Start date 01/19/24 13:26:00 EDT, Infuse over 61, minute(s) Sodium Chloride 0.9% intravenous solution, 1,000 mL, Soln-IV, IV, Once, Stop date 01/19/24 16:39:00EDT, STAT, Start date 01/19/24 16:39:00 EDT, Infuse over 61, minute(s) Basic Metabolic Panel Beta hCG Qual CBC w/ Auto Diff eGFR Hepatic Function Panel Lipase Level Magnesium Level PT & PTT UA with Cult Rflx [facility]10-24-2023 Evaluation note* Encounter Date Diagnosis Assessment Notes Treatment Notes Treatment Clinical Notes Jul, Sore throat (ICD-10 - J02.9) Jul,haryngitis, unspecified etiology (ICD-10 - J02.9)Quick strep negative throat culture obtained. Will call if positive result.. At this time we will treat as viral pharyngitis, Magic mouthwash sent to pharmacy for throat pain. Encourage patient to use Tylenol and or Motrin in addition to Magic mouthwash for pain and discomfort. Encourage patient toincrease fluid intake and rest. Follow-up with PCP if symptoms do not improve or worsen. All questions and concerns addressed. [employer] Other 01-09-2023 Evaluation note* Encounter Date Diagnosis Assessment Notes Treatment Notes Treatment Clinical Notes Oct, Anxiety (ICD-10 - F41.9) [employer] Other 01-05-2023 Evaluation note* Encounter Date Diagnosis Assessment Notes Treatment Notes Treatment Clinical Notes Oct, Left hip pain (ICD-10 - M25.552) Discussed left hip and left leg pain. Seem to be radiating from the lumbar spine. 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 NSAIDs are always appropriate as needed, to take with food and watch for GI upset. Made patient aware of emergent symptoms would warrant immediate evaluation. Does not seem to be warranting MRI or substantial neurologic work-up today. I did discuss with her the possibility of seeing chiropractor for adjustment. Of note, this may also help with the pelvic pain. She is agreeable to this as she does have several family members who also see a chiropractor for adjustment. We will follow-up on this topic at her next visit. Deferring x-rays and physical therapy at this time. Oct,ostpartum depression (ICD-10 - F53.0)Discussed mental health at length. Discussed either referral to hospital-based counseling center orcold calling independent offices on her own. She opts to call private/independent offices to establish care. I ensured her mental stability and safety today. Discussed initiating SSRI. Discussed taking daily and symptoms to be aware of. Discussed follow-up in 6 to 8 weeks once we initiate the medication. If suicidal or homicidal ideation occur, please call the office right away. Do not abruptly stop taking the medication without consulting PCP first. Due to her failing medications in the past, I encouraged her to reach out to the pharmacy to see which medications she has tried and we will prescribe a different SSRI. Will await her return phone call. Oct,Left leg pain (ICD-10 - M79.605)Discussed left hip and left leg pain. Seem to be radiating from the lumbar spine. 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 NSAIDs are always appropriate as needed, to take with food and watch for GI upset. Made patient aware of emergent symptoms would warrant immediate evaluation. Does not seem to be warranting MRI or substantial neurologic work-up today. I did discuss with her the possibility of seeing chiropractor for adjustment. Of note, this may also help with the pelvic pain. She is agreeable to this as she does have several family members who also see a chiropractor for adjustment. We will follow-up on this topic at her next visit. Deferring x-rays and physical therapy at this time. Oct,ysfunctional uterine bleeding (ICD-10 - N93.8)Discussed the irregular menses, dysfunctional uterine bleeding, pain with intercourse, and pelvic pain. She is without symptoms of overt pelvic inflammatory disease, sexually transmitted disease, malignancy. We did discuss the possibility of imaging for work-up however since she does have several concerns from a gynecologic perspective, I encouraged her to reach out to [facility] first. I made her aware that if the wait time to schedule follow-up is prolonged, I am more than happy to initiate diagnostic work-up in the interim to speed up possibility of treatment. Discussed that if she was to havebleeding with intercourse, there may be suspicion for sexually transmitted disease so please monitor symptoms closely. Also briefly discussed pathology behind possible ovarian cysts and hereditary component. Oct,elvic pain (ICD-10 - R10.2)Again I reiterated that there is possibility to have pelvic pain and pain with intercourse related to misalignment of lumbar spine or neuropathic dysfunction. I am eager to see if chiropractic manipulation reduces her pain and discomfort. Oct,ain in female genitalia on intercourse (ICD-10 - N94.10)Discussed the irregular menses, dysfunctional uterine bleeding, pain with intercourse, and pelvic pain. She is without symptoms of overt pelvic inflammatory disease, sexually transmitted disease, malignancy. We did discuss the possibility of imaging for work-up however since she does have several concerns from a gynecologic perspective, I encouraged her to reach out to [employer] first. I made her aware that if the wait time to schedule follow-up is prolonged, I am more than happy to initiate diagnostic work-up in the interim to speed up possibility of treatment. Discussed that if she was to havebleeding with intercourse, there may be suspicion for sexually transmitted disease so please monitor symptoms closely. Also briefly discussed pathology behind possible ovarian cysts and hereditary component. Oct,Other*Progress note was completed with the assistance of voice recognition software for dictation purposes. Please excuse any grammatical errors that were not corrected during review process.I have spent 55 minutes with/on this patient and over 50% of the visit was counseling done by myself, Eula DARLING. [employer] Other 01-01-2023 History general Narrative - Reported* Type Description Date Medical History Anxiety Medical HistoryDepressionMedical HistoryBells palsy with pregnancyMedical HistoryDysmenorrhea 10/2022Medical HistoryPelvic pain 10/2022Medical HistoryLeft leg pain 10/2022Medical HistoryLow back pain 10/2022Medical Historydyspareunia 10/2022Surgical HistorySpinal tap x3 at 6 weeks of ageSurgical History [id number] HistoryVaginal celociatru57/2021Hospitalization HistorySee surgical hxHospitalization OpexxkaMlpgmyuiel42/2021 [employer] [facility] [email or web address] Other Evaluation + Plan note Future Appointments Appointment Date:06/23/2024 01:00:00 PM Scheduled Provider:Lucero Vincent Location:[facility] Appointment Type:[facility] Patient - Adult [facility] Primary Care Evaluation + Plan note Future Appointments Appointment Date:06/30/2024 08:20:00 AM Scheduled Provider:Vasquez Rojo MD Location:[facility] Appointment Type:[facility] Patient - Adult [facility] Primary Care Evaluation + Plan note Future Appointments Appointment Date:09/29/2024 01:00:00 PM Scheduled [facility]: [facility] Hol[facility]/Event () Appointment Date:01/17/2025 09:00:00 AM Scheduled Provider:Mildred Wright Location:[facility] Appointment Type:[facility] Primary Care Evaluation + Plan note Future Appointments Appointment Date:01/17/2025 09:00:00 AM Scheduled Provider:Mildred Wright Location:[facility] Appointment Type:FM Open [facility] Evaluation noteNo InformationNort InMyRoom Other Evaluation noteNo assessment information available [facility] Work Phone: Evaluation note* Diagnosis Nexplanon removal documented [facility] this [facility]* Diagnosis Encounter for other general counseling or advice on contraception [facility] Narrative No data available for this section [facility] No data available for this section [facility] Primary Care Progress note No data available for this section [facility]narrative) Referred by: Mildred Wright [facility] Primary Care Summary Purpose Family History No Family History Records FoundNo Family History Records Found No data available for this section No data available for this section No data available for this section No data available for this section No data available for this section No data available for this section No data available for this section No data available for this section No data available for this section No data available for this section No Family History Records FoundNo Family History Records FoundNo Family History Records FoundNo Family History Records FoundNo Family History Records FoundNo Family History Records Found Advance Directives No Advanced Directives Records FoundNo Advanced Directives Records FoundNo Advanced Directives Records FoundNo Advanced Directives Records FoundNo Advanced Directives Records FoundNo Advanced Directives Records FoundNo Advanced Directives Records FoundNo Advanced Directives Records Found Additional Source Comments REASON FOR VISIT (unrecogniz ed section and content) ReasonCommentsContraceptionNexplanon RemovalReasonCommentsDiscuss Control INFORMATION SOURCE (unrecogn ized section and content) DATE CREATED AUTHOR 12/31/2022 [facility] DATE CREATED AUTHOR AUTHOR'S ORGANIZ ATION 08/15/2023 [facility] DATE CREATED AUTHOR AUTHOR'S ORGANIZ ATION 06/17/2025 [facility] DATE CREATED AUTHOR AUTHOR'S ORGANIZ ATION 06/26/2025 [facility] DATE CREATED AUTHOR AUTHOR'S ORGANIZ ATION 08/15/2025 [facility] EPIC Care Teams (unrecognized sec tion and content) Team Status: Inactive Member Role Status Dates Aletha Adams , PASSENGER SERVICE REPRESENTATIVE-C Attending Provider Active Team MemberRelationshipSpecialtyStart DateEnd Yakov Rodriges MD [address] [place] [address] PCP - [facility]04/28/23Team MemberRelationshipSpecialtyStart DateEnd Date Yakov Rodriges MD PCP - [facility]04/28/23Te MemberRelationshipSpecialtyStart DateEnd Date Yakov Rodriges MD PCP - [facility]04/28/23Team MemberRelationshipSpecialtyStart DateEnd Date Yakov Rodriges MD PCP - [facility]04/28/23 Goals (unrecognized section and content) Goals may be documented in a n alternate section FOR RECORDS PERTAINING TO PATIENTS WHO ARE OR HAVE BEEN ENROLLED IN A CHEMICAL DEPENDENCY/SUBSTANCEABUSE PROGRAM, SOME INFORMATION MAY BE OMITTED. This clinical summary was aggregated from multiple sources. Caution should be exercised in using it in the provision of clinical care. This summary normalizes information from multiple sources, and as a consequence, information in this document may materially change the coding, format and clinical context of patient data. In addition, data may be omitted in some cases. CLINICAL DECISIONS SHOULD BE BASED ON THE PRIMARY CLINICAL RECORDS. [employer] provides no warranty or guarantee of the accuracy or completeness of information in this document.
--- OUTSIDE RECORDS SUMMARY | 2025-08-23 19:56 | XMS_ITS | Encounter Summary ---
Author Organization [facility] Address [address] [place] [address] Care Team Providers Care Industrial Cleaner Name Role Phone Yakov Craft MD Primary Care Provider [phone] Encounter Details DateTypeDepartmentCare Team (Latest Contact Info)Dbybhfmurcl41/27/2023linisync Result Encounter [facility] External Department Unsolicited Krystin Maharaj PA [address] [place] [address] [place], [place] [id number] Social History Tobacco UseTypesPacks/DayYears UsedDateSmoking Tobacco: FormerCigarettesAlcohol UseStandard Drinks/WeekCommentsNever0 (1 standard drink = 0.6 oz pure alcohol) CommentsUnknownSex and Gender InformationValueDate RecordedSex Assigned at BirthNot on fileLegal DxkNwpzxi49/22/2024 12:53 PM ESTGender IdentityNot on fileSexual OrientationNot on fileCOVID-19 ExposureResponseDate RecordedIn the last 10 days, have you been in contact with someone who was confirmed or suspected to have Coronavirus/COVID-19?No / Sugsjv7108/26/2023 8:24 AM EST documented as of this encounter Plan of Treatment Not on file documented as of this encounter Procedures Procedure NamePriorityDate/TimeAssociated DiagnosisCommentsBI US BREAST COMPLETE LEFT08/08/2023 2:55 PM EDT documented in this encounter Results * Left breast US complete (08/08/2023 2:55 PM EDT)Anatomical RegionLaterality ModalityBreastLeftUltrasoundSpecimen (Source)Anatomical Location / Laterality Collection Method / VolumeCollection TimeReceived Time08/08/2023 2:55 PM EDT Narrative 08/08/2023 2:55 PM EDT [facility] ?[address] ? [place], [facility] ? Ultrasound Report ? Signed ? Patient: Dorobek,Nancie J ?MR#: [id number] ?? : 2005 ?Acct:[id number] ?? Age/Sex: 18 / F ?ADM Date: 08/08/23 ?? Loc: US ? Attending Dr: Krystin Maharaj ? Ordering Physician: Krystin Maharaj ?? Date of Service: 08/08/23 ?? Procedure(s): US breast LT complete ?? Accession Number(s): [id number] ? cc: Krystin Maharaj; Pj Kelley D.O. ? Patient: ? NANCIE JOLLEY ? Exam Date: ? 08/08/2023 ?? : ? 2005 ?Gender:F ? Ordering : ? PA Krystin Maharaj . ? Admission #: ? [id number] ?? Family : ?Order #: ? [id number] ? CLICK HERE TO VIEW EXAM ? RADIOLOGY REPORT ? PROCEDURE: ? MAMMOGRAM DIAGNOSTIC 3D BILATERAL CAD, 08/08/2023, 14:10 ?? US BREAST LT COMPLETE, 08/08/2023, 13:24 ? COMPARISON: ? None. ? INDICATIONS: ? Palpable lump left breast 12 o'clock ? Calculator Name ? NCI Breast Cancer Risk Assessment Tool ?? 5 Year Breast Cancer Risk ? Not Applicable. ?? Lifetime Breast Cancer Risk ? Not Applicable. ?? Personal Breast Cancer ?No ?? Personal Ovarian Cancer ? No ?? Treatments ? None ?? Family Cancers ? Grandmother-maternal with breast cancer at age 50. ? LOCATION: ? [facility] ? BREAST COMPOSITION: ? Extremely dense, which lowers the sensitivity of ?? mammography. ? FINDINGS: ? DIAGNOSTIC CATEGORY 1--NEGATIVE. ? RIGHT BREAST: ??No significant suspicious finding. ??Skin surface marker ?? localizing the palpable lump to the anterior 12 o'clock breast appears to ?? overlie dense fibroglandular tissue. ??No mammographic abnormality. ? Ultrasound evaluation in area of palpable lump demonstrates normal appearing ?? dense fibroglandular tissue. ? LEFT BREAST: ??No significant suspicious finding. ? RECOMMENDATIONS: ? CLINICAL EVALUATION. ? PLEASE NOTE: ??A NORMAL MAMMOGRAM DOES NOT EXCLUDE THE POSSIBILITY OF BREAST ?? CANCER. ??A CLINICALLY SUSPICIOUS PALPABLE LUMP SHOULD BE BIOPSIED. ? Dictated by: Adeel Perry M.D. on 08/08/2023 at 14:52 ? Approved by: Adeel Perry M.D. on 08/08/2023 at 14:55 ? Dictated By: ?Adeel Perry M.D. ? Signed By: ?08/08/23 1456 ? DD/ 1455 ? TD/TT: ? Private Banker: Procedure Note Radiology, Radiologist, MD - 08/11/2023 [place] [address] Ultrasound Report Signed Patient: Nancie Jolley JMR#: [id number] : 2005Acct:[id number] Age/Sex: 18 / FADM Date: 08/08/23 Loc: US Attending Dr: Krystin Maharaj Ordering Physician: Krystin Maharaj Date of Service: 08/08/23 Procedure(s): US breast LT complete Accession Number(s): [id number] cc: Krystin Maharaj; Pj Kelley D.O. Patient: NANCIE JOLLEY. Exam Date: 08/08/2023 : 2005 Gender:F Ordering : ALON Maharaj . Admission #: [id number] Family : Order #: [id number] CLICK HERE TO VIEW EXAM RADIOLOGY REPORT [...] breast cancer at age 48. LOCATION: [facility] BREAST COMPOSITION: Extremely dense, which lowers the sensitivity of mammography. FINDINGS: DIAGNOSTIC CATEGORY 1--NEGATIVE. RIGHT BREAST: No significant suspicious finding. Skin surface marker localizing the palpable lump to the anterior 12 o'clock breast appears to overlie dense fibroglandular tissue. No mammographic abnormality. Ultrasound evaluation in area of palpable lump demonstrates normalappearing dense fibroglandular tissue. LEFT BREAST: No significant suspicious finding. RECOMMENDATIONS: CLINICAL EVALUATION. PLEASE NOTE: A NORMAL MAMMOGRAM DOES NOT EXCLUDE THE POSSIBILITY OFBREAST CANCER. A CLINICALLY SUSPICIOUS PALPABLE LUMP SHOULD BE BIOPSIED. Dictated by: Adeel Perry M.D. on 08/08/2023 at 14:52 Approved by: Adeel Perry M.D. on 08/08/2023 at 14:55 Dictated By: Adeel Perry M.D. Signed By:08/08/23 1456 DD/ 1455 TD/TT: Private Banker: Authorizing ProviderResult TypeResult StatusAmy Carol Ann [facility] PROCEDURESFinal Result documented in this encounter Visit Diagnoses Not on filedocumented in this encounter Care Teams Team MemberRelationshipSpecialtyStart DateEnd Date Yakov Craft MD [address] [place] [address] PCP - GeneralFamily Medicine04/28/23documented as of this encounter
--- OUTSIDE RECORDS SUMMARY | 2025-08-23 19:56 | XMS_ITS | Encounter Summary ---
Author Organization [facility] Address [address] [place] [address] Care Team Providers Care Threat Analyst Name Role Phone Yakov Craft MD Primary Care Provider [phone] Encounter Details DateTypeDepartmentCare Team (Latest Contact Info)Ryesrprcxut08/27/2023Clinisync Result Encounter [facility] External Department Unsolicited Krystin Maharaj PA [address] [place] [address] [place], [place] [id number] Social History Tobacco UseTypesPacks/DayYears UsedDateSmoking Tobacco: FormerCigarettesAlcohol UseStandard Drinks/WeekCommentsNever0 (1 standard drink = 0.6 oz pure alcohol) CommentsUnknownSex and Gender InformationValueDate RecordedSex Assigned at BirthNot on fileLegal MsfMujqbf52/22/2024 12:53 PM ESTGender IdentityNot on fileSexual OrientationNot on fileCOVID-19 ExposureResponseDate RecordedIn the last 10 days, have you been in contact with someone who was confirmed or suspected to have Coronavirus/COVID-19?No / Yqethk9908/26/2023 8:24 AM EST documented as of this encounter Plan of Treatment Not on file documented as of this encounter Procedures Procedure NamePriorityDate/TimeAssociated DiagnosisCommentsMM TOMOSYNTHESIS DIAGNOSTIC BI08/08/2023 2:55 PM EDT documented in this encounter Results * MM TOMOSYNTHESIS DIAGNOSTIC BI (08/08/2023 2:55 PM EDT)Anatomical Region LateralityModalityOtherSpecimen (Source)Anatomical Location / Laterality Collection Method / VolumeCollection TimeReceived Time08/08/2023 2:55 PM EDT Narrative 08/08/2023 2:55 PM EDT [facility] ?[address] ? [place], [facility] ? Mammography Report ? Signed ? Patient: Dorobek,Nancie J ?MR#: [id number] ?? : 2005 ?Acct:[id number] ?? Age/Sex: 18 / F ?ADM Date: 08/08/23 ?? Loc: US ? Attending Dr: Krystin Maharaj ? Ordering Physician: Krystin Maharaj ?Results: ? Date of Service: 08/08/23 ?Follow Up: ? Procedure(s): MM tomosynthesis diagnostic BI ?? Accession Number(s): [id number] ? cc: Krystin Maharaj; Pj Kelley D.O. ? Patient: ? NANCIE JOLLEY. ? Exam Date: ? 08/08/2023 ?? : ? 2005 ?Gender:F ? Ordering : ? ALON Maharaj . ? Admission #: ? [id number] ?? Family : ?Order #: ? [id number] ? CLICK HERE TO VIEW EXAM ? [...] 48. ? LOCATION: ? [facility] ? BREAST COMPOSITION: ? Extremely dense, [...] By: ?Adeel Perry M.D. ? Signed By: ?08/11/232 ? DD/ 1455 ? TD/TT: ? Wrapper Stripper: Procedure Note Radiology, Radiologist, MD - 08/11/2023 [place] [address] Mammography Report Signed Patient: Nancie Jolley JMR#: [id number] : 2005Acct:[id number] Age/Sex: 18 / FADM Date: 08/08/23 Loc: US Attending Dr: Krystin Maharaj Ordering Physician: Krystin Rodriguezults: Date of Service: 08/08/23Follow Up: Procedure(s): MM tomosynthesis diagnostic BI Accession Number(s): [id number] cc: Krystin Maharaj; Pj Kelley D.O. Patient: NANCIE JOLLEY Exam Date: 08/08/2023 : 2005 Gender:F Ordering : ALON Maharaj . Admission #: [id number] Family : Order #: [id number] CLICK HERE TO VIEW EXAM RADIOLOGY REPORT [...] at age 48. LOCATION: [facility] BREAST COMPOSITION: Extremely dense, which lowers [...] 14:55 Dictated By: Adeel Perry M.D. Signed By:08/11/23 1042 DD/ 8315 TD/TT: Wrapper Stripper: Authorizing ProviderResult TypeResult StatusAmy Carol Ann PACLINIS[facility]NC IMAGINGFinal Result documented in this encounter Visit Diagnoses Not on filedocumented in this encounter Care Teams Team MemberRelationshipSpecialtyStart DateEnd Date Yakov Craft MD [address] [place] [address] PCP - GeneralFamily Medicine04/28/23documented as of this encounter
--- OUTSIDE RECORDS SUMMARY | 2025-08-23 19:56 | XMS_ITS | Patient Health Record ---
Author Organization [facility] es Address [address] [place] [address] Care Team Providers Care Car Framer Name Role Phone Edgar Radha Primary Care Provider Yolanda Preston Unavailable NASH SALINAS Unavailable [phone] Dr. John Arthur Unavailable [phone] Sharon Cunningham Unavailable [phone] Allergies No Known Allergies Reason For Referral Reason referral from DONA Salinas from [facility] of anxiety and concentration deficit. 09/03 attempt Diagnosis 1 Encounter for screen ing examination for mental health and behavioral disorders (Z13.30) Referral Organization [facility] Referring Provider First Name NASH Referring Provider Last Name MIKAELA Referring Provider Speciality [facility] Referred Organization [facility] Referred Provider Ne Preston Referred Address [address] [place] [place],[address], Referred Provider Specialty Medicatio ns Referral Priority Routine Medications Medication SIG (Take, Route, Frequency, Duration) Notes Start Date End Date Status Lurasidone HCl 40 MG Tablet 1 tablet in the evening with food Orally Once a day; Duration: 30 days increased dosage 11/03/2024 Active Social History Tobacco Use: Social History Observation Description Date Details (start date - stop date) Never Smoker NA - NA Social History GeneralSocial InfoQuestionAnswerNotesDepression Screening (PHQ-9):Little interest or pleasure in doing thingsMore than half the daysFeeling down, depressed, or hopelessNot at allTrouble falling or staying asleep, or sleeping too muchMore than half the daysFeeling tired or having little energyNearly every dayPoor appetite or overeatingNearly every dayFeeling bad about yourself-or that you are a failure or have let yourself or your family downNot at allTrouble concentrating on things, such as reading the newspaper or watching television Nearly every dayMoving or speaking so slowly that other people could have noticed. Or the opposite being so fidgetyor restless that you have been moving around a lot more than usualSeveral daysThoughts that you would be better off , or of hurting yourself in some wayNot at allTotal Hytpv30Nrepwaipmwurs Moderate DepressionDrug/Alcohol:Social InfoQuestionAnswerNotesAUDIT-C (Standard) Did you have a drink containing alcohol in the past year?BeHykgye6Yohhypkfvsuvsm NegativeTobacco Use:Social InfoQuestionAnswerNotesTobacco Control (Standard) Tobacco use:Nonsmoker Problems Problem Type SNOMED Code ICD Code Onset Dates Problem Status W/U Status Risk Notes Problem Tobacco user (768781284) Nicotin e dependence, unspecified, uncomplicated (F17.200) ActiveconfirmedProblemMixed bipolar affective disorder, mild (362968567)Bipolar disorder, current episode mixed, mild (F31.61)ActiveconfirmedProblemGeneralized anxiety disorder (42968222)Generalized anxiety disorder (F41.1)Activeconfirmed Vital Signs Heart Rate 73 /min 11/17/2024 Nquepxaximr30.3 degrees Mwsxbbadkt70/05/6834Vgqsdhzh00 %11/17/2024lood pressure uwihaxtma28 mm Hg11/17/20242122Rqnxni48 in11/17/2024lood pressure mtbjudsl078 mm Hg 11/17/20244097Fvdpxs493.4 lbs11/17/2024BMI25.4 kg/m211/17/2024 Encounters Encounter Location Date Provider Diagnosis [facility] [address] [place] [address] 11/03/2024 Radha Hernández Bipolar disorder, current episode mixed, mild F31.61 and Generalized anxiety disorder F41.1 [facility] [address] [address] 11/17/2024 Radha Hernández Bipolar disorder, current episode mixed, mild F31.61 and Generalized anxiety disorder F41.1 Assessments Encounter Date Diagnosis (ICD Code) Assessment Notes Treatment Notes Treatment Clinical Notes Section Notes 11/03/2024 Bipolar disorder, current episod e mixed, mild (ICD-10 - F31.61) Based on DSM V, this patient meets the criteria for the diagnosis of: _ . Bipolar 1 Disorder . Recommended treatment is: _ Recommended treatment for Bipolar disorder includes FDA approved and OFF label medications: second generation antipsychotics and mood stabilizers. Second generation antipsychotic medications can cause headache, drowsiness, agitation, dizziness, nausea, or extrapyramidal symptoms such as tremors, muscle spasms, slowness of movement or jerking of muscles. The patient verbalizes understanding with all questions answered thoroughly and is in agreement with treatment plan. .. Continue current treatment Tolerating meds well, compliant Call for problems . GOALS: . Maintain medication regimen _Improve mood stability _Improve anxiety control _Improve social and interpersonal functioning . Informed consent obtained: YES, we discussed the diagnosis/diagnoses, the treatment options, treatment(s) recommended vs. no treatment. We discussed risks and benefits of treatment options, treatmentrecommendations vs. no treatment. . Currently at low risk for self harm. Denies ongoing feelings of hopelessness. Denies ongoing suicidal ideation, intent or plan in session. . 11/03/2024Generalized anxiety disorder (ICD-10 - F41.1) Based on DSM V, this patient meets the criteria for the diagnosis of: _ Generalized Anxiety Disorder . Recommended treatment is: _ FDA approved medication for this age group include Selective Serotonin Reuptake Inhibitors (SSRI) and Selective Norepinephrine Reuptake Inhibitors (SNRI). . Selective serotonin reuptake inhibitors? can cause nausea, headache, upset stomach, diarrhea, constipation, anxiety, irritability, and sexual dysfunction. . Please monitor for worsening of symptoms, especially suicidal ideations or morbid thoughts, and call office and or go to the emergency department immediately. Pt does not endorse exhibiting symptoms aligning with beatriz. . The patient verbalizes understanding with all questions answered thoroughly and is in agreement with treatment plan. .. Currently at low risk for self harm. Denies ongoing feelings of hopelessness. Denies ongoing suicidal ideation, intent or plan in session. . Informed consent obtained: YES, we discussed the diagnosis/diagnoses, the treatment options, treatment(s) recommended vs. no treatment. We discussed risks and benefits of treatment options, treatmentrecommendations vs. no treatment. Patient/Guardian will call sooner if symptoms worsen. Patient understands to go to ER if needed if symptoms become severe. Crisis Intervention plan was discussed and agreed upon. Patient/Guardian will call 911 in case of emergency. Emergency contact information was provided to the patient/guardian. . 11/17/2024ipolar disorder, current episode mixed, mild (ICD-10 - F31.61) Patient will continue current treatment plan. Patient verbally acknowledges understanding instructions including medication education and has no further questions comments or concerns at this time. . Follow in 1 Month . Recommended treatment for Bipolar disorder includes FDA approved and OFF label medications: second generation antipsychotics and mood stabilizers. Second generation antipsychotic medications can cause headache, drowsiness, agitation, dizziness, nausea, or extrapyramidal symptoms such as tremors, muscle spasms, slowness of movement or jerking of muscles. . Stable . The patient verbalizes understanding with all questions answered thoroughly and is in agreement with treatment plan. . Continue current treatment. Call for problems . GOALS: . Maintain medication regimen . _Improve mood stability . _Improve anxiety control . _Improve social and interpersonal functioning . Patient/Guardian will call sooner if symptoms worsen. Patient understands to go to ER if needed if symptoms become severe. . Crisis Intervention plan was discussed and agreed upon. Patient/Guardian will call 911 in case of emergency. Emergency contact information was provided to the patient/guardian. . Pharmacological management: . Alternative medication plans were discussed with the patient/guardian. All relevant side effects and potential adverse effects were discussed with the patient/guardian. Standard cautions and potential benefits were discussed. Patient/Guardian consented to the start/continuation of the treatment. 11/17/2024Generalized anxiety disorder (ICD-10 - F41.1) Buspar is a medication used for anxiety. The medication can cause dizziness, sedation, and restless. Please contact the office if you experience these symptoms. The medication typically takes 2-4 weeks to achieve efficacy. Made aware to contact office if symptoms worsen. . Please monitor for worsening of symptoms, especially suicidal ideations or morbid thoughts, and call office and or go to the emergency department immediately. Pt does not endorse exhibiting symptoms aligning with beatriz. . The patient verbalizes understanding with all questions answered thoroughly and is in agreement with treatment plan. . Continue current treatment plan Patient/Guardian will call sooner if symptoms worsen. Patient understands to go to ER if needed if symptoms become severe. Crisis Intervention plan was discussed and agreed upon. Patient/Guardian will call 911 in case of emergency. Emergency contact information was provided to the patient/guardian. Plan Of Treatment No Information Insurance Providers Payer Name Payer Address Payer Phone Subscriber Number Group Number Insured Name Patient Relationship to Insured Coverage Start Date Coverage End Date [employer] [address] [place] [address] [id number] NANCIE FUENTES Self - patient is the insured 4 [employer] [place] [employer] Terminated [address] [place] [address] [phone], ARIAHSelf - patient is the [id number] 2024 Dental [facility] BC[facility] Termed [address] [place] [address] [id number], NACNIEHildajaylin - patient is the insured 2024[facility] Medical [facility] [address] [place] [phone] [id number] - patient is the [id number] 2023 Medical (General) History Surgical History Surgery Date(Month/Year) Tonsillectomy 2018 Hospitalization History Reason Date(Month/Year) Childbirth 2020
--- OUTSIDE RECORDS SUMMARY | 2025-08-23 19:56 | XMS_ITS | Patient Health Record ---
Author Organization [facility] in [place] Address [address] [place] [address] Care Team Providers Care Supervisor Estimator And Drafter Name Role Phone Yakov Craft MD Primary Care Provider Unavailab le Allergies No Known Allergies Reason For Referral No Information Medications Medication SIG (Take, Route, Frequency, Duration) Notes Start Date End Date Status Cephalexin 500 MG 1 capsule Orally every 12 hrs; Duration: 10 days 4Active Social History Tobacco Use: Social History Observation Description Date Details (start date - stop date) Current Smoker NA - NA Tobacco Control (Standard) Question Answer Notes Tobacco use: Current every day smoker Plan Of Treatment No Information Insurance Providers Payer Name Payer Address Payer Phone Subscriber Number Group Number Insured Name Patient Relationship to Insured Coverage Start Date Coverage End Date [employer] [place] [employer] [address] [address] [place] [address] [id number] Heather JolleySelf - patient is the insured Medical (General) History Surgical History Surgery Date(Month/Year) tonsilectomy
--- OUTSIDE RECORDS SUMMARY | 2025-08-23 19:56 | XMS_ITS | Clinical Summary ---
Author Organization [email or web address] Address [id number] [place] [address] Care Team Providers Care Commercial Reporter Name Role Phone Yakov Craft MD Primary Care Provider [phone] Allergies Active AllergyReactionsCriticalityNoted GzuuGztphxrwYuihctokfasjltp81/26/2021 Medications MedicationSigDispense QuantityRefillsLast FilledStart DateEnd DateStatus PNV no.95/ferrous fum/folic ac ( ORAL) Take by mouth.Active Active Problems ProblemNoted DateDiagnosed DateChronic nrebpivtgxj93/08/2018Tonsillar tagdxxzgnvz83/08/2018 Social History Tobacco UseTypesPacks/DayYears UsedDateSmoking Tobacco: NeverCigarsSmokeless Tobacco: NeverAlcohol UseStandard Drinks/WeekCommentsNo0 (1 standard drink = 0.6 oz pure alcohol)ChildcareAnswerDate DgljfwciByawlffacWkeupox10/10/2019Employment AnswerDate HqhsntzpEqisnidqbvTgfvrzp02/10/2019Purpose - LifeAnswerDate Recorded Purpose and direction in yivcLxpwctl25/10/2021CommentsNoSex and Gender InformationValueDate RecordedSex Assigned at HaqzwVqjmny41/28/2021 8:55 AM EDT Legal GkyDawylb93/04/2015 4:42 PM EDTGender WajhmbtqZgtvsk71/28/2021 8:55 AM EDT Sexual OrientationNot on file Last Filed Vital Signs Vital SignReadingTime TakenCommentsBlood Lckjhgmu071/6707 11:58 AM EDT Rzocz772905/09/2021 11:58 AM PMSGheqnucxnve71.3 ??C (97.3 ??F)02/19/2018 8:43 AM EDTRespiratory Usuq581302/19/2018 10:05 AM EDTOxygen Gcycvyewcy83%02/19/2018 10:05 AM EDTInhaled Oxygen Concentration--Mevgyb33.4 kg (159 lb 9.8 oz)05/09/2021 11:58 AM OVPQweoye721.8 cm (5' 4.5 )02/19/2018 6:30 AM EDTBody Mass Index-- Plan of Treatment Health MaintenanceDue DateLast DoneCommentsDepression Enfaffnjr32/24/2015Tobacco Vtytkzygl76/24/2015dult BMI Feozmbubd36/24/2021TaP,Tdap and Td Vaccines (1 - Tdap)2022ap Smear02/04/2024Influenza Oiwgvfg5306/13/2025 Medical Devices Not on file Insurance * Guarantor: Heather Jolley TypeRelation to PatientDate of PhoneBilling AddressThird Republican [id number] [place] [address] Care Teams Team MemberRelationshipSpecialtyStart DateEnd Date Yakov Craft MD PCP - GeneralFamily Medicine02/19/18
--- OUTSIDE RECORDS SUMMARY | 2025-08-23 19:56 | XMS_ITS | Clinical Summary ---
Author Organization [facility] Address [address] [facility] [place] [address] Care Team Providers Care Agent Producer Name Role Phone Yakov Craft MD Primary Care Provider [phone] Allergies Active AllergyReactionsCriticalityNoted DateCommentsCyclobenzaprineUnknown 05/07/2021 Medications MedicationSigDispense QuantityRefillsLast FilledStart DateEnd DateStatus clobetasol (Temovate) 0.05 % cream Indications:NumbnessApply 1 application topically Daily for 14 days 45 g 515ActiveHospital, Clinic, or Other Facility Administered MedicationOrdered DoseRouteFrequencyStart DateEnd DateStatus etonogestrel-eluting 68 mg contraceptive implant 1 each Indications:Insertion of Nexplanon1 wxkdVXWdcuuockxc378Active Encounters DateTypeDepartmentCare SrpdNngteurwmhq70/11/2025 3:00 PM ESTProcedure Visit [facility] [address] [place] [address] Krystin Maharaj PA Well woman exam with routine gynecological exam; Kpgbtljn87/11/2025amboo flowsheet [facility] [address] [address] [place] [address] Krystin Maharaj PA 08/15/2025 9:50 AM ESTOffice Visit [facility] [address] [place] [address] Pj Kelley DO Encounter for other general counseling or advice on contraception; Insertion of Spyjwxttp32/03/2025Bamboo flowsheet [facility] [address] [facility] [place] [address] Pj Kelley DO from Last 3 Months Family History RelationNameStatusCommentsDaughter1 Social History Tobacco UseTypesPacks/DayYears UsedDateSmoking Tobacco: FormerCigarettesAlcohol UseStandard Drinks/WeekCommentsNever0 (1 standard drink = 0.6 oz pure alcohol) CommentsNoSex and Gender InformationValueDate RecordedSex Assigned at BirthNot on fileLegal XxuBeciia52/22/2024 12:53 PM ESTGender IdentityNot on file Sexual OrientationNot on file Last Filed Vital Signs Vital SignReadingTime TakenCommentsBlood Mqueiemr016/7008/23/2025 2:55 PM EST Pulse--Temperature--Respiratory Rate--Oxygen Saturation--Inhaled Oxygen Concentration--Gnmffn54.1 kg (136 lb 12.8 oz)08/23/2025 2:55 PM XGBDywyhb766.1 cm (5' 5 )10/30/2022 12:00 PM ESTBody Mass Index22.76010/30/2022 12:00 PM EST Plan of Treatment Not on file Procedures Procedure NamePriorityDate/TimeAssociated DiagnosisCommentsPOCT , URINE Hzmygpb7608/15/2025 1:18 PM EST Encounter for other general counseling or advice on contraception ID INSERTION DRUG DELIVERY IPUVJXDXqersam63/03/2025 10:30 AM EST Encounter for other general counseling or advice on contraception Insertion of Nexplanon from Last 3 Months Results * POCT , urine manually resulted (08/15/2025 1:18 PM EST)ComponentValue Ref RangeTest MethodAnalysis TimePerformed AtPathologist SignaturePreg Test, UrNegativeNegativeSpecimen (Source)Anatomical Location / LateralityCollection Method / VolumeCollection TimeReceived KfnjEdfkw19/03/2025 1:18 PM EST Narrative Authorizing ProviderResult TypeResult StatusPj Kelley DOPOINT OF CARE TEST ENTER/EDIT ORDERABLESFinal Result * ID INSERTION DRUG DELIVERY IMPLANT (08/15/2025 10:30 AM EST) Narrative Lian Chiang LPN - 08/15/2025 10:30 AM EST Lian Chiang LPN 08/15/2025 2:54 PM Insertion/Removal of [...] bandage applied: yes ?? Authorizing ProviderResult TypeResult StatusPj Kelley DOIN CLINIC/BEDSIDE ORDERABLESFinal Result from Last 3 Months Insurance Care Teams Team MemberRelationshipSpecialtyStart DateEnd Date Yakov Craft MD [address] [place] [address] [facility]04/28/23
--- OUTSIDE RECORDS SUMMARY | 2025-08-23 19:57 | XMS_ITS | Encounter Summary ---
Author Organization [facility] Address [address] [place] [address] Care Team Providers Care Destination Imagination Coordinator Name Role Phone Yakov Craft MD Primary Care Provider [phone] Encounter Details DateTypeDepartmentCare Team (Latest Contact Info)Sbukraywfav41/03/2025Bamboo flowsheet [facility] [address] [place] [address] Pj Kelley DO [address] [facility] [facility] [address] [place], [place] [id number] Social History Tobacco UseTypesPacks/DayYears UsedDateSmoking Tobacco: FormerCigarettesAlcohol UseStandard Drinks/WeekCommentsNever0 (1 standard drink = 0.6 oz pure alcohol) CommentsUnknownSex and Gender InformationValueDate RecordedSex Assigned at BirthNot on fileLegal StzJtslcw18/22/2024 12:53 PM ESTGender IdentityNot on fileSexual OrientationNot on filedocumented as of this encounter Plan of Treatment Not on file documented as of this encounter Visit Diagnoses Not on filedocumented in this encounter Care Teams Team MemberRelationshipSpecialtyStart DateEnd Date Yakov Craft MD [address] [place] [address] PCP - GeneralFamily Medicine04/28/23documented as of this encounter
--- OUTSIDE RECORDS SUMMARY | 2025-08-23 19:57 | XMS_ITS | Encounter Summary ---
Author Organization [facility] Address [address] [place] [address] Care Team Providers Care Woven Paper Hat Mender Name Role Phone Yakov Craft MD Primary Care Provider [phone] Encounter Details DateTypeDepartmentCare Team (Latest Contact Info)Rjgockhydbu89/11/2025Bamboo flowsheet [facility] [address] [place] [address] Krystin Maharaj PA [address] [place], [facility] Social History Tobacco UseTypesPacks/DayYears UsedDateSmoking Tobacco: FormerCigarettesAlcohol UseStandard Drinks/WeekCommentsNever0 (1 standard drink = 0.6 oz pure alcohol) CommentsNoSex and Gender InformationValueDate RecordedSex Assigned at BirthNot on fileLegal MjkSqvnrn98/22/2024 12:53 PM ESTGender IdentityNot on file Sexual OrientationNot on filedocumented as of this encounter Plan of Treatment Not on file documented as of this encounter Visit Diagnoses Not on filedocumented in this encounter Care Teams Team MemberRelationshipSpecialtyStart DateEnd Date Yakov Craft MD [address] [place] [address] PCP - GeneralFamily Medicine04/28/23documented as of this encounter
[2025-08-26 15:08] LABS: Age Gdln ACOG Testing Note (.); IGP, rfx Aptima HPV ASCU Note (.)
== END 2025-08-23 19:51 | disposition home or self-care (01) ==
LOC: LAB 19:50
PROVIDERS: PCP Obstetrics & Gynecology; Visit Provider Physician Assistant
DX: Z01.419 Encounter for gynecological examination (general) (routine) without abnormal findings (principal)
CPT/HCPCS: 88175